=== PATIENT | male | born 1930 | race Caucasian/White ===

== ENCOUNTER 2018-08-26 20:40 | Inpatient (IN) | payer MEDICARE, BC ==
[2018-08-26] MEDS ORDERED: Acetaminophen 500 MG Tab PO ONE (20:43)
--- NOTE | 2018-08-26 21:02 | EDM.PDOC ---
ED HPI GENERAL MEDICAL PROBLEM - General Chief Complaint: General Stated Complaint: fever, wekaness, lethargic Time Seen by Provider: 08/26/18 20:40 Source of Information: Reports: Patient, EMS, Family History Limitations: Reports: No Limitations - History of Present Illness INITIAL COMMENTS - FREE TEXT/NARRATIVE: Antonio is an 87 yo male who presents to the ED via [facility]. is present and states this afternoon he hadn't been feeling well. States around 3: 30 he laid down to take a nap and when she went to get him up around 1700 for supper his legs were very weak. She admits she did give him some banana pudding which he was able to keep down. She states he was acting like he was going to pass out. Upon EMS arrival, EMS state he was not showing any sign of stroke. Was very weak and felt warm. Initial temperature was 102. They state he was answering all questions appropriately. No unilateral weakness. Duration: Getting Worse - Related Data Allergies Allergy/AdvReac Type Severity Reaction Status Date / Time No Known Allergies Allergy Verified 08/26/18 21:04 Home Meds: Home Meds Aspirin 81 mg PO BEDTIME 05/22/15 [History] Calcium Carb/D3/Magnesium/Zinc [Albert Mag Zinc + D3] 1 each PO BEDTIME 05/22/15 [ History] Fish Oil/[place]-3 Fatty Acids [Fish Oil 1,000 MG] 1 gm PO DAILY 05/22/15 [History ] Multivitamin [Multivitamins] 1 each PO DAILY 05/22/15 [History] Potassium Chloride [Klor-Con 10] 10 meq PO BEDTIME 05/22/15 [History] atorvaSTATin [Lipitor] 10 mg PO DAILY 06/08/15 [History] Glucosamine [Glucosamine Sulfate] 500 mg PO BID 04/21/16 [History] Nitroglycerin 0.4 mg SL ASDIRECTED PRN 04/21/16 [History] Carvedilol [Coreg] 6.25 mg PO BID 05/01/16 [History] Cholecalciferol (Vitamin D3) [Vitamin D] 1,000 unit PO BID 05/01/16 [History] Furosemide [Lasix] 20 mg PO DAILY 05/01/16 [History] Magnesium 250 mg PO DAILY 05/01/16 [History] Warfarin [Coumadin] 2.5 mg PO DAILY 05/01/16 [History] Digoxin 0.125 mg PO DAILY 03/02/17 [History] Irbesartan [Avapro] 150 mg PO DAILY 08/26/18 [History] Spironolactone [Aldactone] 25 mg PO DAILY 08/26/18 [History] Past Medical History HEENT History: Reports: Cataract, Hard of Hearing Cardiovascular History: Reports: Afib, High Cholesterol, Hypertension, PR Other Cardiovascular History: PR on 2015. 3 stents Respiratory History: Reports: Sleep Apnea Genitourinary History: Reports: BPH Neurological History: Reports: TIA - Past Surgical History HEENT Surgical History: Reports: Cataract Surgery, Tonsillectomy Cardiovascular Surgical History: Reports: Other (See Below) Social & Family History - Family History Family Medical History: Noncontributory - Caffeine Use Caffeine Use: Reports: Coffee ED ROS GENERAL - Review of Systems Review Of Systems: See Below Constitutional: Reports: Fever, Weakness, Diaphoresis HEENT: Reports: No Symptoms Respiratory: Reports: Cough. Denies: Shortness of Breath Cardiovascular: Reports: No Symptoms GI/Abdominal: Reports: No Symptoms : Reports: No Symptoms Skin: Reports: No Symptoms Neurological: Reports: Confusion, Difficulty Walking, Weakness. Denies: Dizziness, Numbness, Tingling, Trouble Speaking, Gait Disturbance Psychiatric: Reports: No Symptoms ED EXAM, GENERAL - Physical Exam Exam: See Below Exam Limited By: No Limitations General Appearance: Alert, No Apparent Distress, Other (Patient is on hospital bed in no acute distress, answering all questions appropriately. ) Eye Exam: Bilateral Eye: EOMI, Normal Inspection, PERRL Ears: Normal External Exam, Normal Canal, Normal TMs, Hearing Loss Nose: Normal Inspection, Normal Mucosa, No Blood Throat/Mouth: Normal Inspection, Normal Lips, Normal Teeth, Normal Gums, Normal Oropharynx, Normal Voice, No Airway Compromise Head: Atraumatic, Normocephalic Neck: Normal Inspection, Supple Respiratory/Chest: No Respiratory Distress, Decreased Breath Sounds, Crackles ( right lower lobe). No: Wheezing, Stridor, Accessory Muscle Use Cardiovascular: Normal Peripheral Pulses, Regular Rate, Rhythm, No Edema GI/Abdominal: Normal Bowel Sounds, Soft, Non-Tender Extremities: Normal Inspection, Normal Range of Motion, No Pedal Edema Neurological: Alert, Oriented, Normal Cognition, No Motor/Sensory Deficits Psychiatric: Normal Affect, Normal Mood Skin Exam: Dry, Intact, Normal Color, No Rash, Increased Warmth Course - Vital Signs Last Recorded V/S: Last Vital Signs Temp 101.7 F H 08/26/18 20:40 Pulse 77 08/26/18 20:40 Resp 18 08/26/18 20:40 BP 114/57 L 08/26/18 20:40 Pulse Ox 95 08/26/18 20:40 - Orders/Labs/Meds Orders: Active Orders 24 hr Category Date Time Status Chest 2V [CR] Stat Exams 08/26/18 20:31 Taken Head wo Cont [CT] Stat Exams 08/26/18 21:02 Taken CULTURE BLOOD [BC] Stat Lab 08/26/18 21:00 Received CULTURE BLOOD [BC] Stat Lab 08/26/18 21:07 Received Blood Culture x2 Reflex Set [OM.PC] Stat Oth 08/26/18 20:31 Ordered Labs: Laboratory Tests 08/26/18 08/26/18 08/26/18 Range/Units 21:07 21:07 21:07 WBC 13.9 H (5.0-10.0) 10^3/uL RBC 4.48 L (4.50-6.00) 10^6/uL Hgb 12.7 L (14.0-18.0) g/dL Hct 38.3 L (40.0-54.0) % MCV 85.5 (82.0-94.0) fL MCH 28.3 (27.0-32.0) pg MCHC 33.2 (33.0-38.0) g/dL RDW Coeff of Emmanuelle 16.5 H (11.0-15.0) % Plt Count 144 L (150-400) 10^3/uL Neut % (Auto) 81.4 (35-85) % Lymph % (Auto) 5.4 L (10-55) % [place] % (Auto) 12.8 (0-16) % Eos % (Auto) 0.3 (0-5) % Baso % (Auto) 0.1 (0-3) % Neut # (Auto) 11.27 H (1.80-7.00) 10^3/uL Lymph # (Auto) 0.75 L (1.00-4.80) 10^3/uL [place] # (Auto) 1.78 H (0.00-0.80) 10^3/uL Eos # (Auto) 0.04 (0.00-0.45) 10^3/uL Baso # (Auto) 0.02 10^3/uL PT (9.7-12.3) SEC INR (0.92-1.18) Sodium 139 (136-145) mEq/L Potassium 4.6 (3.5-5.0) mEq/L Chloride 104 (98-106) mEq/L Carbon Dioxide 24 (21-32) mmol/L BUN 31 H D (7-18) mg/dL Creatinine 1.2 (0.7-1.3) mg/dL Est Cr Clr Drug Dosing 49.94 mL/min Estimated GFR (MDRD) 57 L (>=60) mL/min Glucose 139 H D (75-99) mg/dL Calcium 9.2 (8.4-10.1) mg/dL Total Bilirubin 0.6 (0.0-1.0) mg/dL AST 21 (15-37) U/L ALT 18 (12-78) U/L Alkaline Phosphatase 186 H (46-116) U/L Creatine Kinase 36 (35-232) U/L Troponin I < 0.017 (0.00-0.06) ng/mL C-Reactive Protein 1.9 H (0.2-0.8) mg/dL Total Protein 6.9 (6.4-8.2) g/dL Albumin 3.0 L (3.4-5.0) g/dL Urine Color Yellow (YELLOW) Urine Appearance Clear (CLEAR) Urine pH 6.5 (4.5-8.0) Ur Specific [place] 1.015 (1.003-1.020) Urine Protein Trace H (NEGATIVE) mg/dL Urine Glucose (UA) Negative (NEGATIVE) mg/dL Urine Ketones Trace H (NEGATIVE) mg/dL Urine Occult Blood Negative (NEGATIVE) Urine Nitrite Negative (NEGATIVE) Urine Bilirubin Negative (NEGATIVE) Urine Urobilinogen 1.0 (0.2-1.0) EU/dL Ur Leukocyte Esterase Negative (NEGATIVE) Urine RBC Not seen (0-5) /HPF Urine WBC Not seen (0-5) /HPF Ur Squamous Epith Cells Occasional H (NOT SEEN) /HPF Urine Bacteria Occasional H (NOT SEEN) /HPF 08/26/18 Range/Units 21:07 WBC (5.0-10.0) 10^3/uL RBC (4.50-6.00) 10^6/uL Hgb (14.0-18.0) g/dL Hct (40.0-54.0) % MCV (82.0-94.0) fL MCH (27.0-32.0) pg MCHC (33.0-38.0) g/dL RDW Coeff of Emmanuelle (11.0-15.0) % Plt Count (150-400) 10^3/uL Neut % (Auto) (35-85) % Lymph % (Auto) (10-55) % [place] % (Auto) (0-16) % Eos % (Auto) (0-5) % Baso % (Auto) (0-3) % Neut # (Auto) (1.80-7.00) 10^3/uL Lymph # (Auto) (1.00-4.80) 10^3/uL [place] # (Auto) (0.00-0.80) 10^3/uL Eos # (Auto) (0.00-0.45) 10^3/uL Baso # (Auto) 10^3/uL PT 16.3 H (9.7-12.3) SEC INR 1.63 H (0.92-1.18) Sodium (136-145) mEq/L Potassium (3.5-5.0) mEq/L Chloride (98-106) mEq/L Carbon Dioxide (21-32) mmol/L BUN (7-18) mg/dL Creatinine (0.7-1.3) mg/dL Est Cr Clr Drug Dosing mL/min Estimated GFR (MDRD) (>=60) mL/min Glucose (75-99) mg/dL Calcium (8.4-10.1) mg/dL Total Bilirubin (0.0-1.0) mg/dL AST (15-37) U/L ALT (12-78) U/L Alkaline Phosphatase (46-116) U/L Creatine Kinase (35-232) U/L Troponin I (0.00-0.06) ng/mL C-Reactive Protein (0.2-0.8) mg/dL Total Protein (6.4-8.2) g/dL Albumin (3.4-5.0) g/dL Urine Color (YELLOW) Urine Appearance (CLEAR) Urine pH (4.5-8.0) Ur Specific [place] (1.003-1.020) Urine Protein (NEGATIVE) mg/dL Urine Glucose (UA) (NEGATIVE) mg/dL Urine Ketones (NEGATIVE) mg/dL Urine Occult Blood (NEGATIVE) Urine Nitrite (NEGATIVE) Urine Bilirubin (NEGATIVE) Urine Urobilinogen (0.2-1.0) EU/dL Ur Leukocyte Esterase (NEGATIVE) Urine RBC (0-5) /HPF Urine WBC (0-5) /HPF Ur Squamous Epith Cells (NOT SEEN) /HPF Urine Bacteria (NOT SEEN) /HPF Meds: Medications Discontinued Medications Generic Name Dose Route Start Last Admin Trade Name Freq PRN Reason Stop Dose Admin Acetaminophen 1,000 mg 08/26/18 20:43 08/26/18 20:47 Tylenol Extra Strength PO 08/26/18 20:44 1,000 mg ONETIME ONE Administration Departure - Departure Time of Disposition: 22:13 Disposition: Admitted As Inpatient 67 Clinical Impression: Pneumonia Qualifiers: Pneumonia type: due to unspecified organism Laterality: right Lung location: lower lobe of lung Qualified Code(s): J18.1 - Lobar pneumonia, unspecified organism - Discharge Information Forms: ED Department Discharge - Problem List & Annotations (1) Pneumonia SNOMED Code(s): 862553125 Code(s): J18.9 - PNEUMONIA, UNSPECIFIED ORGANISM Status: Acute Current Visit: Yes Qualifiers: Pneumonia type: due to unspecified organism Laterality: right Lung location: lower lobe of lung Qualified Code(s): J18.1 - Lobar pneumonia, unspecified organism - My Orders Last 24 Hours: My Active Orders 08/26/18 20:31 Chest 2V [CR] Stat Blood Culture x2 Reflex Set [OM.PC] Stat 08/26/18 21:00 CULTURE BLOOD [BC] Stat 08/26/18 21:02 Head wo Cont [CT] Stat 08/26/18 21:07 CULTURE BLOOD [BC] Stat - Assessment/Plan Admission H&P: Please use this note as an admission H&P Last 24 Hours: My Active Orders 08/26/18 20:31 Chest 2V [CR] Stat Blood Culture x2 Reflex Set [OM.PC] Stat 08/26/18 21:00 CULTURE BLOOD [BC] Stat 08/26/18 21:02 Head wo Cont [CT] Stat 08/26/18 21:07 CULTURE BLOOD [BC] Stat Plan: chest x-ray showed right lower lobe infiltrate. CT head negative for any acute changes. WBC mildly elevated with slightly elevated CRP. Will start IV Rocephin and Azithromycin. Blood cultures are pending. Dr. Watson and Sherrill Alarcon both contacted on admission. Dr. Watson agreed with admission.
[2018-08-26 21:24] LABS: CHLORIDE,CL 104 mEq/L (98-106); SODIUM,NA 139 mEq/L (136-145)
[2018-08-26] MEDS ORDERED: Sodium Chloride 0.9% 10 ML Syringe FLUSH PRN (22:55)
[2018-08-26] MEDS ORDERED: Ibuprofen 200 MG Tab PO PRN (22:55)
[2018-08-26] MEDS ORDERED: Docusate Sodium 100 MG Cap PO PRN (22:55)
[2018-08-26] MEDS ORDERED: Acetaminophen 325 MG Tab PO PRN (22:55)
[2018-08-26] MEDS ORDERED: Nitroglycerin 0.4 MG Tab.SL SL PRN (22:55)
[2018-08-26] MEDS ORDERED: cefTRIAXone 1 GM Vial IVPUSH SCH (23:00)
[2018-08-26] MEDS ORDERED: Sodium Chloride 0.9% 250 ML IV SCH (23:00)
[2018-08-27] MEDS ORDERED: Azithromycin 500 MG in Sodium Chloride 0.9% 250 ML IV SCH ×2
[2018-08-27 07:13] LABS: CHLORIDE,CL 108 mEq/L (98-106); SODIUM,NA 143 mEq/L (136-145)
[2018-08-27] MEDS: Carvedilol 6.25 MG Tab PO SCH ×2 (07:48→19:58)
[2018-08-27] MEDS: Losartan 25 MG Tab PO SCH (07:49)
[2018-08-27] MEDS: atorvaSTATin 20 MG Tab PO SCH (07:50)
[2018-08-27] MEDS: Spironolactone 25 MG Tab PO SCH (07:50)
[2018-08-27] MEDS: Furosemide 20 MG Tab PO SCH (07:50)
--- NOTE | 2018-08-27 08:55 | PCM.PN ---
- General Info Date of Service: 08/27/18 Admission Dx/Problem (Free Text): RLL Pneumonia Functional Status: Reports: Pain Controlled, Tolerating Diet, Ambulating - Review of Systems General: Reports: Fever, Weakness, Fatigue, Malaise HEENT: Reports: Sinus Congestion, Rhinitis. Denies: Ear Pain Pulmonary: Denies: Shortness of Breath, Cough Cardiovascular: Denies: Chest Pain, Edema, Lightheadedness Gastrointestinal: Denies: Abdominal Pain, Nausea, Vomiting Genitourinary: Reports: No Symptoms Musculoskeletal: Reports: No Symptoms Skin: Reports: No Symptoms Neurological: Reports: Confusion (reported confusion by nurses last night, more clear this am) - Patient Data Vitals - Most Recent: Last Vital Signs Temp 97.1 F 08/27/18 08:00 Pulse 72 08/27/18 08:00 Resp 18 08/27/18 08:00 BP 113/62 08/27/18 08:00 Pulse Ox 100 08/27/18 08:00 Weight - Most Recent: 186 lb 4.8 oz I&O - Last 24 Hours: Intake & Output 08/26/18 08/27/18 08/27/18 22:59 06:59 14:59 Output Total 800 275 Balance -800 -275 Lab Results Last 24 Hours: Laboratory Results - last 24 hr 08/26/18 08/26/18 08/26/18 Range/Units 21:07 21:07 21:07 WBC 13.9 H (5.0-10.0) 10^3/uL RBC 4.48 L (4.50-6.00) 10^6/uL Hgb 12.7 L (14.0-18.0) g/dL Hct 38.3 L (40.0-54.0) % MCV 85.5 (82.0-94.0) fL MCH 28.3 (27.0-32.0) pg MCHC 33.2 (33.0-38.0) g/dL RDW Coeff of Emmanuelle 16.5 H (11.0-15.0) % Plt Count 144 L (150-400) 10^3/uL Neut % (Auto) 81.4 (35-85) % Lymph % (Auto) 5.4 L (10-55) % [place] % (Auto) 12.8 (0-16) % Eos % (Auto) 0.3 (0-5) % Baso % (Auto) 0.1 (0-3) % Neut # (Auto) 11.27 H (1.80-7.00) 10^3/uL Lymph # (Auto) 0.75 L (1.00-4.80) 10^3/uL [place] # (Auto) 1.78 H (0.00-0.80) 10^3/uL Eos # (Auto) 0.04 (0.00-0.45) 10^3/uL Baso # (Auto) 0.02 10^3/uL PT (9.7-12.3) SEC INR (0.92-1.18) Sodium 139 (136-145) mEq/L Potassium 4.6 (3.5-5.0) mEq/L Chloride 104 (98-106) mEq/L Carbon Dioxide 24 (21-32) mmol/L BUN 31 H D (7-18) mg/dL Creatinine 1.2 (0.7-1.3) mg/dL Est Cr Clr Drug Dosing 49.94 mL/min Estimated GFR (MDRD) 57 L (>=60) mL/min Glucose 139 H D (75-99) mg/dL Calcium 9.2 (8.4-10.1) mg/dL Total Bilirubin 0.6 (0.0-1.0) mg/dL AST 21 (15-37) U/L ALT 18 (12-78) U/L Alkaline Phosphatase 186 H (46-116) U/L Creatine Kinase 36 (35-232) U/L Troponin I < 0.017 (0.00-0.06) ng/mL C-Reactive Protein 1.9 H (0.2-0.8) mg/dL Total Protein 6.9 (6.4-8.2) g/dL Albumin 3.0 L (3.4-5.0) g/dL Urine Color Yellow (YELLOW) Urine Appearance Clear (CLEAR) Urine pH 6.5 (4.5-8.0) Ur Specific [place] 1.015 (1.003-1.020) Urine Protein Trace H (NEGATIVE) mg/dL Urine Glucose (UA) Negative (NEGATIVE) mg/dL Urine Ketones Trace H (NEGATIVE) mg/dL Urine Occult Blood Negative (NEGATIVE) Urine Nitrite Negative (NEGATIVE) Urine Bilirubin Negative (NEGATIVE) Urine Urobilinogen 1.0 (0.2-1.0) EU/dL Ur Leukocyte Esterase Negative (NEGATIVE) Urine RBC Not seen (0-5) /HPF Urine WBC Not seen (0-5) /HPF Ur Squamous Epith Cells Occasional H (NOT SEEN) /HPF Urine Bacteria Occasional H (NOT SEEN) /HPF 08/26/18 08/27/18 08/27/18 Range/Units 21:07 05:11 06:50 WBC 11.3 H (5.0-10.0) 10^3/uL RBC 4.15 L (4.50-6.00) 10^6/uL Hgb 11.7 L (14.0-18.0) g/dL Hct 35.7 L (40.0-54.0) % MCV 86.0 (82.0-94.0) fL MCH 28.2 (27.0-32.0) pg MCHC 32.8 L (33.0-38.0) g/dL RDW Coeff of Emmanuelle 16.4 H (11.0-15.0) % Plt Count 128 L (150-400) 10^3/uL Neut % (Auto) 73.6 (35-85) % Lymph % (Auto) 13.1 (10-55) % [place] % (Auto) 12.4 (0-16) % Eos % (Auto) 0.8 (0-5) % Baso % (Auto) 0.1 (0-3) % Neut # (Auto) 8.33 H (1.80-7.00) 10^3/uL Lymph # (Auto) 1.48 (1.00-4.80) 10^3/uL [place] # (Auto) 1.40 H (0.00-0.80) 10^3/uL Eos # (Auto) 0.09 (0.00-0.45) 10^3/uL Baso # (Auto) 0.01 10^3/uL PT 16.3 H (9.7-12.3) SEC INR 1.63 H (0.92-1.18) Sodium 143 (136-145) mEq/L Potassium 4.1 (3.5-5.0) mEq/L Chloride 108 H (98-106) mEq/L Carbon Dioxide 26 (21-32) mmol/L BUN 27 H (7-18) mg/dL Creatinine 1.1 (0.7-1.3) mg/dL Est Cr Clr Drug Dosing 54.48 mL/min Estimated GFR (MDRD) > 60 (>=60) mL/min Glucose 87 D (75-99) mg/dL Calcium 8.8 (8.4-10.1) mg/dL Total Bilirubin (0.0-1.0) mg/dL AST (15-37) U/L ALT (12-78) U/L Alkaline Phosphatase (46-116) U/L Creatine Kinase (35-232) U/L Troponin I (0.00-0.06) ng/mL C-Reactive Protein 4.1 H (0.2-0.8) mg/dL Total Protein (6.4-8.2) g/dL Albumin (3.4-5.0) g/dL Urine Color (YELLOW) Urine Appearance (CLEAR) Urine pH (4.5-8.0) Ur Specific [place] (1.003-1.020) Urine Protein (NEGATIVE) mg/dL Urine Glucose (UA) (NEGATIVE) mg/dL Urine Ketones (NEGATIVE) mg/dL Urine Occult Blood (NEGATIVE) Urine Nitrite (NEGATIVE) Urine Bilirubin (NEGATIVE) Urine Urobilinogen (0.2-1.0) EU/dL Ur Leukocyte Esterase (NEGATIVE) Urine RBC (0-5) /HPF Urine WBC (0-5) /HPF Ur Squamous Epith Cells (NOT SEEN) /HPF Urine Bacteria (NOT SEEN) /HPF Med Orders - Current: Current Medications Acetaminophen (Tylenol) 650 mg PO Q4H PRN PRN Reason: Pain (Mild 1-3)/fever Aspirin (Aspirin) 81 mg PO BEDTIME COUNTS INCLUDE 234 BEDS AT THE [facility] Atorvastatin Calcium (Lipitor) 10 mg PO DAILY COUNTS INCLUDE 234 BEDS AT THE [facility] Last Admin: 08/27/18 07:50 Dose: 10 mg Carvedilol (Coreg) 6.25 mg PO BID COUNTS INCLUDE 234 BEDS AT THE [facility] Last Admin: 08/27/18 07:48 Dose: 6.25 mg Ceftriaxone Sodium (Rocephin) 1 gm IVPUSH Q24H COUNTS INCLUDE 234 BEDS AT THE [facility] Last Admin: 08/26/18 23:49 Dose: 1 gm Digoxin (Lanoxin) 125 mcg PO DAILY@1200 COUNTS INCLUDE 234 BEDS AT THE [facility] Docusate Sodium (Colace) 100 mg PO BID PRN PRN Reason: Constipation Furosemide (Lasix) 20 mg PO DAILY COUNTS INCLUDE 234 BEDS AT THE [facility] Last Admin: 08/27/18 07:50 Dose: 20 mg Azithromycin 500 mg/ Sodium (Chloride) 250 mls @ 250 mls/hr IV Q24H COUNTS INCLUDE 234 BEDS AT THE [facility] Last Admin: 08/26/18 23:49 Dose: 250 mls/hr Sodium Chloride (Normal Saline) 250 mls @ 250 mls/hr IV ASDIRECTED COUNTS INCLUDE 234 BEDS AT THE [facility] Last Admin: 08/26/18 23:19 Dose: 250 mls/hr Ibuprofen (Motrin) 400 mg PO Q6H PRN PRN Reason: Pain (mild 1-3) Losartan Potassium (Cozaar) 50 mg PO DAILY COUNTS INCLUDE 234 BEDS AT THE [facility] Last Admin: 08/27/18 07:49 Dose: 50 mg Magnesium Oxide (Magnesium Oxide) 250 mg PO DAILY COUNTS INCLUDE 234 BEDS AT THE [facility] Last Admin: 08/27/18 07:49 Dose: 250 mg Nitroglycerin (Nitrostat) 0.4 mg SL ASDIRECTED PRN PRN Reason: Chest Pain Potassium Chloride (Klor-Con 10) 10 meq PO BEDTIME COUNTS INCLUDE 234 BEDS AT THE [facility] Sodium Chloride (Saline Flush) 10 ml FLUSH ASDIRECTED PRN PRN Reason: Keep Vein Open Spironolactone (Aldactone) 25 mg PO DAILY COUNTS INCLUDE 234 BEDS AT THE [facility] Last Admin: 08/27/18 07:50 Dose: 25 mg Warfarin Sodium (Coumadin) 2.5 mg PO DAILY@1200 COUNTS INCLUDE 234 BEDS AT THE [facility] Discontinued Medications Acetaminophen (Tylenol Extra Strength) 1,000 mg PO ONETIME ONE Stop: 08/26/18 20:44 Last Admin: 08/26/18 20:47 Dose: 1,000 mg - Exam General: Alert, Oriented HEENT: Mucous Membr. Moist/[place] Neck: Supple Lungs: Decreased Breath Sounds Cardiovascular: Regular Rate, Regular Rhythm GI/Abdominal Exam: Normal Bowel Sounds, Soft, Non-Tender Extremities: Normal Inspection, No Pedal Edema Skin: Warm, Dry Neurological: No New Focal Deficit - Problem List & Annotations (1) Pneumonia SNOMED Code(s): 587582090 Code(s): J18.9 - PNEUMONIA, UNSPECIFIED ORGANISM Status: Acute Priority: High Current Visit: Yes Qualifiers: Pneumonia type: due to other aerobic Gram-negative bacteria Laterality: right Lung location: lower lobe of lung Qualified Code(s): J15.6 - Pneumonia due to other Gram-negative bacteria - Problem List Review Problem List Initiated/Reviewed/Updated: Yes - Assessment Assessment:: RLL Pneumonia, suspect gram negative bacteria - Plan Plan:: Patient resting this am, stable. Oriented x3 this am. More clear with conversation than when presented to ER per nurse. Afebrile this am. Blood pressure 113/62. WBC this am 11.3, improved from 13.9. CRP increased to 4.1. no sputum obtained as of yet. States minimal cough at this point. Will continue with IV Rocephin and Zithromax. PT to consult for strengthening. Inappropriate for discharge.
[2018-08-27] MEDS: Digoxin 125 MCG Tab PO SCH (11:46)
[2018-08-27] MEDS: Warfarin 2.5 MG Tab PO SCH (11:46)
[2018-08-27] MEDS: Lactated Ringers 1,000 ML IV SCH (12:01)
[2018-08-27] MEDS: Potassium Chloride 10 MEQ Tab.ER PO SCH (19:58)
[2018-08-27] MEDS: Aspirin 81 MG Tab.Chew PO SCH (19:58)
[2018-08-27] MEDS: cefTRIAXone 1 GM Vial IVPUSH SCH (19:58)
[2018-08-27] MEDS: Azithromycin 500 MG in Sodium Chloride 0.9% 250 ML IV SCH (20:02)
[2018-08-28] MEDS: Lactated Ringers 1,000 ML IV SCH (02:12)
[2018-08-28 07:15] LABS: CHLORIDE,CL 110 mEq/L (98-106); SODIUM,NA 144 mEq/L (136-145)
[2018-08-28] MEDS: atorvaSTATin 20 MG Tab PO SCH (07:42)
[2018-08-28] MEDS: Losartan 25 MG Tab PO SCH (07:43)
[2018-08-28] MEDS: Carvedilol 6.25 MG Tab PO SCH ×2 (07:43→19:34)
[2018-08-28] MEDS: Furosemide 20 MG Tab PO SCH (07:43)
[2018-08-28] MEDS: Spironolactone 25 MG Tab PO SCH (07:44)
--- NOTE | 2018-08-28 10:57 | PCM.PN ---
- General Info Date of Service: 08/28/18 Admission Dx/Problem (Free Text): RLL Pneumonia Subjective Update: Antonio is an 87 year old male who was admitted to the hospital from the ED on for RLL pneumonia. Was reportedly confused and weak with a fever at home prior to ED presentation. Patient reports he is feeling much better today. Reports he does continue to cough some. Does not feel SOB at rest. Did have some low blood pressures yesterday. IV fluids were started and patient has been normotensive. Has had low grade fever since admit, but nothing greater than 99.6. He has been tolerating a low sodium diet. He offers no c/o pain this morning and overall has no complaints. He is alert and oriented. Family reports he is much less confused than he was on admit. Functional Status: Reports: Pain Controlled, Tolerating Diet, Ambulating, Urinating, New Symptoms - Review of Systems General: Reports: Weakness, Fatigue. Denies: Fever, Chills HEENT: Reports: No Symptoms Pulmonary: Reports: Cough. Denies: Shortness of Breath, Pleuritic Chest Pain, Sputum, Hemoptysis, Wheezing Cardiovascular: Reports: Dyspnea on Exertion. Denies: Chest Pain, Palpitations , Orthopnea, Edema, Lightheadedness Gastrointestinal: Reports: No Symptoms. Denies: Abdominal Pain, Decreased Appetite, Diarrhea, Nausea, Vomiting Genitourinary: Reports: No Symptoms Musculoskeletal: Reports: No Symptoms Skin: Reports: No Symptoms Neurological: Reports: No Symptoms. Denies: Confusion, Dizziness, Weakness Psychiatric: Reports: No Symptoms - Patient Data Vitals - Most Recent: Last Vital Signs Temp 98.9 F 08/28/18 07:54 Pulse 68 08/28/18 07:54 Resp 18 08/28/18 07:54 BP 116/66 08/28/18 07:54 Pulse Ox 99 08/28/18 07:54 Weight - Most Recent: 186 lb 4.8 oz I&O - Last 24 Hours: Intake & Output 08/27/18 08/28/18 08/28/18 22:59 06:59 14:59 Intake Total 440 1000 400 Output Total 300 250 300 Balance 140 750 100 Lab Results Last 24 Hours: Laboratory Results - last 24 hr 08/28/18 08/28/18 08/28/18 Range/Units 06:50 06:50 06:50 WBC 8.6 (5.0-10.0) 10^3/uL RBC 4.20 L (4.50-6.00) 10^6/uL Hgb 11.7 L (14.0-18.0) g/dL Hct 36.2 L (40.0-54.0) % MCV 86.2 (82.0-94.0) fL MCH 27.9 (27.0-32.0) pg MCHC 32.3 L (33.0-38.0) g/dL RDW Coeff of Emmanuelle 16.5 H (11.0-15.0) % Plt Count 138 L (150-400) 10^3/uL Neut % (Auto) 63.5 (35-85) % Lymph % (Auto) 18.0 (10-55) % Gulf % (Auto) 14.7 (0-16) % Eos % (Auto) 3.6 (0-5) % Baso % (Auto) 0.2 (0-3) % Neut # (Auto) 5.46 (1.80-7.00) 10^3/uL Lymph # (Auto) 1.55 (1.00-4.80) 10^3/uL Gulf # (Auto) 1.26 H (0.00-0.80) 10^3/uL Eos # (Auto) 0.31 (0.00-0.45) 10^3/uL Baso # (Auto) 0.02 10^3/uL PT 17.9 H (9.7-12.3) SEC INR 1.80 H (0.92-1.18) Sodium 144 (136-145) mEq/L Potassium 4.7 (3.5-5.0) mEq/L Chloride 110 H (98-106) mEq/L Carbon Dioxide 27 (21-32) mmol/L BUN 26 H (7-18) mg/dL Creatinine 1.1 (0.7-1.3) mg/dL Est Cr Clr Drug Dosing 54.48 mL/min Estimated GFR (MDRD) > 60 (>=60) mL/min Glucose 82 (75-99) mg/dL Calcium 8.7 (8.4-10.1) mg/dL C-Reactive Protein 5.2 H (0.2-0.8) mg/dL George Results Last 24 Hours: Microbiology 08/26/18 21:00 Aerobic Blood Culture - Preliminary Blood - Venous NO GROWTH AFTER 1 DAY Anaerobic Blood Culture - Preliminary NO GROWTH AFTER 1 DAY 08/26/18 21:07 Aerobic Blood Culture - Preliminary Blood - Venous - Lab Draw NO GROWTH AFTER 1 DAY Anaerobic Blood Culture - Preliminary NO GROWTH AFTER 1 DAY Med Orders - Current: Current Medications Acetaminophen (Tylenol) 650 mg PO Q4H PRN PRN Reason: Pain (Mild 1-3)/fever Aspirin (Aspirin) 81 mg PO BEDTIME [facility] Last Admin: 08/27/18 19:58 Dose: 81 mg Atorvastatin Calcium (Lipitor) 10 mg PO DAILY [facility] Last Admin: 08/28/18 07:42 Dose: 10 mg Carvedilol (Coreg) 6.25 mg PO BID [facility] Last Admin: 08/28/18 07:43 Dose: 6.25 mg Ceftriaxone Sodium (Rocephin) 1 gm IVPUSH Q24H [facility] Last Admin: 08/27/18 19:58 Dose: 1 gm Digoxin (Lanoxin) 125 mcg PO DAILY@1200 [facility] Last Admin: 08/27/18 11:46 Dose: 125 mcg Docusate Sodium (Colace) 100 mg PO BID PRN PRN Reason: Constipation Furosemide (Lasix) 20 mg PO DAILY [facility] Last Admin: 08/28/18 07:43 Dose: 20 mg Sodium Chloride (Normal Saline) 250 mls @ 250 mls/hr IV ASDIRECTED [facility] Last Admin: 08/26/18 23:19 Dose: 250 mls/hr Azithromycin 500 mg/ Sodium (Chloride) 250 mls @ 250 mls/hr IV Q24H [facility] Last Admin: 08/27/18 20:02 Dose: 250 mls/hr Ibuprofen (Motrin) 400 mg PO Q6H PRN PRN Reason: Pain (mild 1-3) Losartan Potassium (Cozaar) 50 mg PO DAILY [facility] Last Admin: 08/28/18 07:43 Dose: 50 mg Magnesium Oxide (Magnesium Oxide) 250 mg PO DAILY [facility] Last Admin: 08/28/18 07:42 Dose: 250 mg Nitroglycerin (Nitrostat) 0.4 mg SL ASDIRECTED PRN PRN Reason: Chest Pain Potassium Chloride (Klor-Con 10) 10 meq PO BEDTIME [facility] Last Admin: 05/01/19 19:58 Dose: 10 meq Sodium Chloride (Saline Flush) 10 ml FLUSH ASDIRECTED PRN PRN Reason: Keep Vein Open Spironolactone (Aldactone) 25 mg PO DAILY [facility] Last Admin: 08/28/18 07:44 Dose: 25 mg Warfarin Sodium (Coumadin) 2.5 mg PO DAILY@1200 [facility] Last Admin: 08/27/18 11:46 Dose: 2.5 mg Discontinued Medications Acetaminophen (Tylenol Extra Strength) 1,000 mg PO ONETIME ONE Stop: 08/26/18 20:44 Last Admin: 08/26/18 20:47 Dose: 1,000 mg Ceftriaxone Sodium (Rocephin) 1 gm IVPUSH Q24H [facility] Last Admin: 08/26/18 23:49 Dose: 1 gm Azithromycin 500 mg/ Sodium (Chloride) 250 mls @ 250 mls/hr IV Q24H [facility] Last Admin: 08/26/18 23:49 Dose: 250 mls/hr Lactated Ringer's (Ringers, Lactated) 1,000 mls @ 75 mls/hr IV ASDIRECTED [facility] Last Admin: 08/28/18 02:12 Dose: 75 mls/hr - Exam Quality Assessment: DVT Prophylaxis. No: Supplemental Oxygen General: Alert, Oriented, No Acute Distress Neck: Supple Lungs: Clear to Auscultation, Normal Respiratory Effort, Decreased Breath Sounds (RLL). No: Crackles, Rales, Rhonchi, Wheezing Cardiovascular: Regular Rate, Regular Rhythm GI/Abdominal Exam: Normal Bowel Sounds, Soft, Non-Tender, No Organomegaly, No Distention, No Abnormal Bruit, No Mass, Pelvis Stable Extremities: Normal Inspection, Normal Range of Motion, Non-Tender, No Pedal Edema, Normal Capillary Refill Neurological: No New Focal Deficit Psy/Mental Status: Alert, Normal Affect, Normal Mood - Problem List & Annotations (1) Pneumonia SNOMED Code(s): 275372086 Code(s): J18.9 - PNEUMONIA, UNSPECIFIED ORGANISM Status: Acute Priority: High Current Visit: Yes Qualifiers: Pneumonia type: due to other aerobic Gram-negative bacteria Laterality: right Lung location: lower lobe of lung Qualified Code(s): J15.6 - Pneumonia due to other Gram-negative bacteria - Problem List Review Problem List Initiated/Reviewed/Updated: Yes - Assessment Assessment:: RLL Pneumonia, suspect gram negative bacteria - Plan Plan:: WBC improved from 13.9 on admit to 8.6 today. CRP increased some from 4.1 to 5.2 today. Patient has been afebrile is maintaining O2 sats on RA. Unable to obtain sputum culture as patient has nonproductive cough. Cough is minimal. Blood cultures remain negative. BP stable. Will discontinue IVF. INR 1.8. Continue current dose Coumadin. Will continue with IV Rocephin and Zithromax. PT for strengthening. Anticipate discharge tomorrow after additional day of IV antibiotics. Discussed this with patient who was agreeable with plan.
[2018-08-28] MEDS: Warfarin 2.5 MG Tab PO SCH (11:49)
[2018-08-28] MEDS: Digoxin 125 MCG Tab PO SCH (11:49)
[2018-08-28] MEDS: Aspirin 81 MG Tab.Chew PO SCH (19:33)
[2018-08-28] MEDS: Potassium Chloride 10 MEQ Tab.ER PO SCH (19:34)
[2018-08-28] MEDS: cefTRIAXone 1 GM Vial IVPUSH SCH (19:34)
[2018-08-28] MEDS: Azithromycin 500 MG in Sodium Chloride 0.9% 250 ML IV SCH (19:34)
[2018-08-29] MEDS: Carvedilol 6.25 MG Tab PO SCH (07:12)
[2018-08-29] MEDS: Spironolactone 25 MG Tab PO SCH (07:12)
[2018-08-29] MEDS: atorvaSTATin 20 MG Tab PO SCH (07:13)
[2018-08-29] MEDS: Losartan 25 MG Tab PO SCH (07:13)
[2018-08-29] MEDS: Furosemide 20 MG Tab PO SCH (07:13)
[2018-08-29] MEDS ORDERED: cefTRIAXone 1 GM Vial IVPUSH ONE (08:06)
[2018-08-29 08:53] LABS: CHLORIDE,CL 109 mEq/L (98-106); SODIUM,NA 145 mEq/L (136-145)
[2018-08-29 11:38] VITALS: BP 94/54
[2018-08-29] MEDS: Warfarin 2.5 MG Tab PO SCH (12:09)
[2018-08-29] MEDS: Digoxin 125 MCG Tab PO SCH (12:10)
--- NOTE | 2018-08-30 05:28 | DISCH ---
HISTORY OF PRESENT ILLNESS: Antonio is an 87-year-old male who was initially admitted on the 08/26/2018 for a right lower lobe pneumonia. He had presented to the emergency room with some confusion, weakness, and unable to ambulate with a fever at home. He has gradually made significant improvement during his hospital stay. He did receive some IV fluids secondary to being hypotensive; however, his blood pressure has normalized as of the last 24 hours. He has not had any further attempts while being in the hospital. This morning, he is feeling much better. He is answering all questions appropriately. He does not really appear to be in any acute distress whatsoever. He states he is ready for discharge at this point in time. LABORATORY WORK: White blood count on admission was 13,900 and currently 8600. INR was 1.63 on admission and now 1.8. CRP is slightly elevated at 5.2. Urinalysis was negative. PHYSICAL EXAMINATION: VITAL SIGNS: This morning does show a blood pressure of 108/63 with a respiratory rate of 20, and O2 is 99% on room air. Temperature of 97.6 with a pulse of 70. GENERAL: Pleasant and cooperative male. Again, he is in no acute distress, not acutely ill. HEENT: Grossly unremarkable. LUNGS: Clear to auscultation. I did not hear any adventitious sounds this morning. There are no crackles, rhonchi, or rales. No wheezing is noted. CARDIOVASCULAR: Regular rate and rhythm. No murmurs are noted. Scant, trace pedal edema bilaterally. ASSESSMENT: Right lower lobe pneumonia, suspect Gram-negative bacteria. PLAN: Blood cultures were normal. No growth after 2 days. We were unable to get a sputum culture secondary to dry cough. Again, we will look at discharge today. We will resume home medications. We will discuss with the decreasing his losartan to 25 mg daily. INR is 1.8. We will continue with the current Coumadin dose. He will receive 1 g of IV Rocephin prior to discharge and then we will plan on sending home on 3 days of Zithromax. We will look at the followup in 2 weeks in the clinic. If he continues to do well this morning, we will again plan for discharge anyway when his is present. I discussed this in detail with the patient and he is agreeable and is ready to go home at this time. MARCEL/MODL /[id number]
== END 2018-08-29 13:50 | disposition home or self-care (01) | DRG 179 ==
LOC: CC.ED 20:40 → CC.MS 22:26 → CC.ED 22:40 → CC.MS 22:40 → UNDOADMIN 22:40
PROVIDERS: ADMIT Physician Assistant Medical; ATTEND Family Medicine
DX: J15.6 Pneumonia due to other Gram-negative bacteria (principal); H91.90 Unspecified hearing loss, unspecified ear; I48.91 Unspecified atrial fibrillation; E78.00 Pure hypercholesterolemia, unspecified; I10 Essential (primary) hypertension; G47.30 Sleep apnea, unspecified; N40.0 Benign prostatic hyperplasia without lower urinary tract symptoms; Z79.82 Long term (current) use of aspirin; Z79.01 Long term (current) use of anticoagulants; Z79.899 Other long term (current) drug therapy; Z98.49 Cataract extraction status, unspecified eye; I25.2 Old myocardial infarction; Z95.5 Presence of coronary angioplasty implant and graft; Z86.73 Personal history of transient ischemic attack (TIA), and cerebral infarction without residual deficits
CPT/HCPCS: 36415; 70450; 71046; 80048; 80053; 81001; 82550; 83880; 84484; 85025; 85610; 86140; 87040; 93005; 99285-25; A9270-GY; J0456; J0696; J7050; J7120

== ENCOUNTER 2019-01-18 20:00 | Inpatient (IN) | payer MEDICARE, BC ==
--- NOTE | 2019-01-18 20:22 | EDM.PDOC ---
ED HPI GENERAL MEDICAL PROBLEM - General Chief Complaint: Trauma Stated Complaint: found on ground, cant stand, on coumadin Time Seen by Provider: 01/18/19 20:06 Source of Information: Reports: Patient, Family, RN History Limitations: Reports: Altered Mental Status (chronic/dementia) - History of Present Illness INITIAL COMMENTS - FREE TEXT/NARRATIVE: This patient is an 88 year old male that presents to the ER via private vehicle. TRAUMA CODE called due to elderly fall on coumadin. CXR performed. Iv placed, property assessment monitor placed, labs ordered. Patient hemodynamically stable. The is with the patient at bedside. The and patient are historians, however more than patient due to patient dementia. The reports the patient was acting fine all day today. She reports until about 5pm. She reports at 5pm he told her that he was feeling tired. She told him to go take a walk. The patient then at 5:15pm left the home [place]. She reports she was at home and he still was not back after 7pm. She reports so about 7:15pm she went to go look for him. She reports she found him about 100 yards from the house. She reports she thinks he was walking back to the house when he felt, but this is uncertain when he fell or if he fell. The reports she found the patient laying flat on his back on the grass path. She reports that when she found him, he complained that he had chest pain and shortness of breath. She reports that she called for help, and it took two people to lift him from the ground. Then she brought him here to the ER. The patient does not recall falling or remember laying on the ground. The reports this is not uncommon for the patient with his history of dementia. The patient currently in the ER has no complaints. He has no pain complaints and no complaints of shortness of breath. The patient is alert. The reports he usually walks around on his own and goes on walks. He is unable to do this in the ER without assistance. The reports patient has not been sick before saying he was tired this evening. She reports only complaint is he has been congested several days. Onset: Today, Unknown/Unsure (last known well time was 5:15pm) Onset Date: 01/18/19 Onset Time: 17:15 Location: Reports: Head, Chest Improves with: Reports: None Worsens with: Reports: None - Related Data Allergies Allergy/AdvReac Type Severity Reaction Status Date / Time No Known Allergies Allergy Verified 01/18/19 20:27 Home Meds: Home Meds Aspirin 81 mg PO BEDTIME 05/22/15 [History] Calcium Carb/D3/Magnesium/Zinc [Albert Mag Zinc + D3] 1 each PO DAILY 05/22/15 [ History] Fish Oil/[place]-3 Fatty Acids [Fish Oil 1,000 MG] 1 gm PO DAILY 05/22/15 [History ] Multivitamin [Multivitamins] 1 each PO DAILY 05/22/15 [History] Potassium Chloride [Klor-Con 10] 10 meq PO MOWEFR 05/22/15 [History] atorvaSTATin [Lipitor] 10 mg PO DAILY 06/08/15 [History] Glucosamine [Glucosamine Sulfate] 500 mg PO DAILY 04/21/16 [History] Nitroglycerin 0.4 mg SL ASDIRECTED PRN 04/21/16 [History] Carvedilol [Coreg] 3.125 mg PO BID 05/01/16 [History] Cholecalciferol (Vitamin D3) [Vitamin D] 1,000 unit PO BID 05/01/16 [History] Furosemide [Lasix] 20 mg PO SUMOWEFR 05/01/16 [History] Magnesium 250 mg PO MOWEFR 05/01/16 [History] Warfarin [Coumadin] 2.5 mg PO SUMOTUTHFRSA 05/01/16 [History] Digoxin 0.125 mg PO SUMOWEFR 03/02/17 [History] Spironolactone [Aldactone] 25 mg PO SUMOWEFR 08/26/18 [History] Irbesartan 150 mg PO DAILY 01/18/19 [History] Tamsulosin HCl [Flomax] 0.4 mg PO DAILY 01/18/19 [History] Past Medical History HEENT History: Reports: Cataract, Hard of Hearing Cardiovascular History: Reports: Afib, High Cholesterol, Hypertension, IA Other Cardiovascular History: IA on 2015. 3 stents Respiratory History: Reports: Sleep Apnea Genitourinary History: Reports: BPH Neurological History: Reports: TIA - Past Surgical History HEENT Surgical History: Reports: Cataract Surgery, Tonsillectomy Cardiovascular Surgical History: Reports: Other (See Below) Social & Family History - Family History Family Medical History: Noncontributory - Caffeine Use Caffeine Use: Reports: Coffee Review of Systems - Review of Systems Review Of Systems: See Below (ROS is limited due to patient hx of dementia and not with patient during fall.) Constitutional: Reports: Weakness (general weakness) Eyes: Reports: No Symptoms Ears: Reports: No Symptoms Nose: Reports: Congestion Mouth/Throat: Reports: No Symptoms Respiratory: Reports: Shortness of Breath (complained to of being short of breath when found on ground. Not currently.) Cardiovascular: Reports: Chest Pain (Complained of chest pain when found by on ground. Not currently.). Denies: Palpitations GI/Abdominal: Denies: Abdominal Pain, Diarrhea, Nausea, Vomiting Genitourinary: Reports: No Symptoms Musculoskeletal: Reports: No Symptoms. Denies: Neck Pain, Shoulder Pain, Arm Pain, Back Pain, Hand Pain, Leg Pain, Foot Pain, Joint Pain, Joint Swelling, Muscle Pain, Muscle Stiffness Skin: Reports: Bruising (old left hand at skin tear. Left frontal scalp ), Wound (old healing skin tear to left hand. ). Denies: Cyanosis, Jaundice, Mottled, Pallor, Diaphoresis Neurological: Reports: Confusion (Chronic, history of dementia. ), Weakness ( generalized), Gait Disturbance (ambualtory with two person assist in the ER upon patient arrival. ). Denies: Headache Psychiatric: Reports: No Symptoms ED EXAM, GENERAL - Physical Exam Exam: See Below Exam Limited By: Altered Mental Status (Pt. chronic hx of dementia) General Appearance: Alert, WD/WN, No Apparent Distress Eye Exam: Bilateral Eye: EOMI, Normal Inspection, PERRL Ears: Normal External Exam, Normal Canal, Hearing Grossly Normal (with hearing aids), Normal TMs (hearing aids removed for exam. ) Ear Exam: Bilateral Ear: Auricle Normal, Canal Normal, TM normal Nose: Normal Inspection, Normal Mucosa, No Blood Throat/Mouth: Normal Inspection, Normal Lips, Normal Gums, Normal Oropharynx, Normal Voice, No Airway Compromise Head: Other (left frontal scalp erythema/ecchymosis small area). No: Facial Swelling, Facial Tenderness, Sinus Tenderness Neck: Normal Inspection, Supple, Non-Tender, Full Range of Motion. No: Tender Lateral, Tender Midline Respiratory/Chest: No Respiratory Distress, Lungs Clear, Normal Breath Sounds, No Accessory Muscle Use, Chest Non-Tender. No: Respiratory Distress, Decreased Breath Sounds, Crackles, Rales, Rhonchi, Wheezing, Stridor, Pleural Rub, Accessory Muscle Use, Retractions, Splinting, Prolonged Expiration Cardiovascular: Normal Peripheral Pulses, Regular Rate, Rhythm, No Edema, No Gallop, No JVD, No Rub, Systolic Murmur Peripheral Pulses: 2+: Radial (L), Radial (R), Posterior Tibial (L), Posterior Tibial (R), Dorsalis Pedis (L), Dorsalis Pedis (R) GI/Abdominal: Normal Bowel Sounds, Soft, Non-Tender, No Organomegaly, No Distention, No Abnormal Bruit, No Mass, Pelvis Stable (Male) Exam: Deferred Rectal (Males) Exam: Deferred Back Exam: Normal Inspection, Full Range of Motion. No: CVA Tenderness (L), CVA Tenderness (R), Decreased Range of Motion, Muscle Spasm, Paraspinal Tenderness, Vertebral Tenderness Extremities: Normal Inspection, Normal Range of Motion, Non-Tender, No Pedal Edema, Normal Capillary Refill Neurological: Alert, CN II-XII Intact (No unilateral weaknesses. Stroke score 0. GCS 15. ), No Motor/Sensory Deficits, Confused (Hx of dementia. Patient is not able to recall what occurred or if he fell, etc. reports this is normal for this patient. ), Memory Loss Recent Events (Does not recall fall.), Abnormal Gait (assisted by two staff who report patient was unsteady on feet and woulve fallen if not assisted. ), Other (Oriented to person and place. Not time. This is patient baseline per . ) Psychiatric: Normal Affect, Normal Mood Skin Exam: Warm, Dry, Normal Color, No Rash, Ecchymosis (small left frontal scalp: Also OLD left hand. ), Erythema (left frontal scalp), Wound/Incision ( left hand OLD skin tear). No: Mottled, Pallor Lymphatic: No Adenopathy EKG INTERPRETATION EKG Date: 01/18/19 Time: 19:59 Rate (Beats/Min): 83 WI/PQ Interval: Paced Comparison: No Change Course - Vital Signs Last Recorded V/S: Last Vital Signs Temp 99 F 01/18/19 20:00 Pulse 82 01/18/19 20:00 Resp 18 01/18/19 20:00 BP 124/71 01/18/19 20:00 Pulse Ox 97 01/18/19 20:00 - Orders/Labs/Meds Orders: Active Orders 24 hr Category Date Time Status Cervical Spine wo Cont [CT] Routine Exams 01/18/19 Taken Chest 1V Frontal [CR] Routine Exams 01/18/19 Taken Head wo Cont [CT] Routine Exams 01/18/19 Taken UA RFX JERMAINE AND CULT IF INDIC [URIN] Stat Lab 01/18/19 20:16 Ordered EKG 12 Lead [EK] Stat Ther 01/18/19 20:16 Ordered Medication Orders Acetaminophen (Tylenol) 650 mg PO Q4H PRN PRN Reason: Pain (Mild 1-3)/fever Aspirin (Aspirin) 81 mg PO BEDTIME [facility] Atorvastatin Calcium (Lipitor) 10 mg PO DAILY [facility] Carvedilol (Coreg) 3.125 mg PO BID [facility] Digoxin (Lanoxin) 125 mcg PO SUMOWEFR [facility] Diphtheria/Tetanus/Acell Pertussis (Adacel) 0.5 ml IM .ONCE ONE Stop: 01/18/19 22:42 Docusate Sodium (Colace) 100 mg PO BID PRN PRN Reason: Constipation Furosemide (Lasix) 20 mg PO SUMOWEFR [facility] Ibuprofen (Motrin) 600 mg PO Q6H PRN PRN Reason: Pain (mild 1-3) Morphine Sulfate (Morphine) 2 mg IVPUSH Q2H PRN PRN Reason: Pain (severe 7-10) Nitroglycerin (Nitrostat) 0.4 mg SL ASDIRECTED PRN PRN Reason: Chest Pain Non-Formulary Medication (Calcium Carb/D3/Magnesium/Zinc [Albert Mag Zinc + D3]) 1 each PO DAILY [facility] Non-Formulary Medication (Cholecalciferol (Vitamin D3)) 1,000 unit PO BID [facility] Non-Formulary Medication (Fish Oil/[place]-3 Fatty Acids [Fish Oil 1,000 Mg]) 1 gm PO DAILY [facility] Non-Formulary Medication (Glucosamine [Glucosamine Sulfate]) 500 mg PO DAILY [facility] Non-Formulary Medication (Irbesartan [Irbesartan]) 150 mg PO DAILY [facility] Non-Formulary Medication (Magnesium [Magnesium]) 250 mg PO MOWEFR [facility] Non-Formulary Medication (Multivitamin [Multivitamins]) 1 each PO DAILY [facility] Ondansetron HCl (Zofran) 4 mg IV Q6H PRN PRN Reason: Nausea/Vomiting Potassium Chloride (Klor-Con 10) 10 meq PO MOWEFR [facility] Spironolactone (Aldactone) 25 mg PO SUMOWEFR [facility] Tamsulosin HCl (Flomax) 0.4 mg PO DAILY [facility] Warfarin Sodium (C[facility]madin) [facility] Labs: Laboratory Tests 01/18/19 01/18/19 01/18/19 Range/Units 20:16 20:16 20:16 WBC 11.2 H (5.0-10.0) 10^3/uL RBC 4.57 (4.50-6.00) 10^6/uL Hgb 14.2 (14.0-18.0) g/dL Hct 41.6 (40.0-54.0) % MCV 91.0 (82.0-94.0) fL MCH 31.1 (27.0-32.0) pg MCHC 34.1 (33.0-38.0) g/dL RDW Coeff of Emmanuelle 14.9 (11.0-15.0) % Plt Count 128 L (150-400) 10^3/uL Neut % (Auto) 79.3 (35-85) % Lymph % (Auto) 6.2 L (10-55) % Green % (Auto) 13.1 (0-16) % Eos % (Auto) 1.3 (0-5) % Baso % (Auto) 0.1 (0-3) % Neut # (Auto) 8.87 H (1.80-7.00) 10^3/uL Lymph # (Auto) 0.69 L (1.00-4.80) 10^3/uL Green # (Auto) 1.47 H (0.00-0.80) 10^3/uL Eos # (Auto) 0.15 (0.00-0.45) 10^3/uL Baso # (Auto) 0.01 10^3/uL PT (9.7-12.3) SEC INR (0.92-1.18) Sodium 139 (136-145) mEq/L Potassium 5.4 H (3.5-5.0) mEq/L Chloride 103 (98-106) mEq/L Carbon Dioxide 27 (21-32) mmol/L BUN 26 H (7-18) mg/dL Creatinine 1.3 (0.7-1.3) mg/dL Est Cr Clr Drug Dosing 46.54 mL/min Estimated GFR (MDRD) 52 L (>=60) mL/min Glucose 112 H D (75-99) mg/dL Lactic Acid (0.4-2.0) mmol/L Calcium 9.1 (8.4-10.1) mg/dL Magnesium 2.2 (1.8-2.4) mg/dL Total Bilirubin 0.9 (0.0-1.0) mg/dL AST 27 (15-37) U/L ALT 27 (12-78) U/L Alkaline Phosphatase 124 H (46-116) U/L Creatine Kinase 69 (35-232) U/L Troponin I < 0.017 (0.00-0.06) ng/mL NT-Pro-B Natriuret Pep 2163 H (0-1000) pg/mL Total Protein 7.1 (6.4-8.2) g/dL Albumin 3.4 (3.4-5.0) g/dL Amylase 117 H (25-115) U/L Lipase (73-393) U/L Urine Color Yellow (YELLOW) Urine Appearance Clear (CLEAR) Urine pH 7.5 (4.5-8.0) Ur Specific [employer] [place] 1.015 (1.003-1.020) Urine Protein Negative (NEGATIVE) mg/dL Urine Glucose (UA) Negative (NEGATIVE) mg/dL Urine Ketones Negative (NEGATIVE) mg/dL Urine Occult Blood Negative (NEGATIVE) Urine Nitrite Negative (NEGATIVE) Urine Bilirubin Negative (NEGATIVE) Urine Urobilinogen 1.0 (0.2-1.0) EU/dL Ur Leukocyte Esterase Negative (NEGATIVE) 01/18/19 01/18/19 01/18/19 Range/Units 20:18 20:54 20:54 WBC (5.0-10.0) 10^3/uL RBC (4.50-6.00) 10^6/uL Hgb (14.0-18.0) g/dL Hct (40.0-54.0) % MCV (82.0-94.0) fL MCH (27.0-32.0) pg MCHC (33.0-38.0) g/dL RDW Coeff of Emmanuelle (11.0-15.0) % Plt Count (150-400) 10^3/uL Neut % (Auto) (35-85) % Lymph % (Auto) (10-55) % Green % (Auto) (0-16) % Eos % (Auto) (0-5) % Baso % (Auto) (0-3) % Neut # (Auto) (1.80-7.00) 10^3/uL Lymph # (Auto) (1.00-4.80) 10^3/uL Green # (Auto) (0.00-0.80) 10^3/uL Eos # (Auto) (0.00-0.45) 10^3/uL Baso # (Auto) 10^3/uL PT 13.1 H (9.7-12.3) SEC INR 1.29 H (0.92-1.18) Sodium (136-145) mEq/L Potassium (3.5-5.0) mEq/L Chloride (98-106) mEq/L Carbon Dioxide (21-32) mmol/L BUN (7-18) mg/dL Creatinine (0.7-1.3) mg/dL Est Cr Clr Drug Dosing mL/min Estimated GFR (MDRD) (>=60) mL/min Glucose (75-99) mg/dL Lactic Acid 1.5 (0.4-2.0) mmol/L Calcium (8.4-10.1) mg/dL Magnesium (1.8-2.4) mg/dL Total Bilirubin (0.0-1.0) mg/dL AST (15-37) U/L ALT (12-78) U/L Alkaline Phosphatase (46-116) U/L Creatine Kinase (35-232) U/L Troponin I (0.00-0.06) ng/mL NT-Pro-B Natriuret Pep (0-1000) pg/mL Total Protein (6.4-8.2) g/dL Albumin (3.4-5.0) g/dL Amylase (25-115) U/L Lipase 244 (73-393) U/L Urine Color (YELLOW) Urine Appearance (CLEAR) Urine pH (4.5-8.0) Ur Specific [employer] [place] (1.003-1.020) Urine Protein (NEGATIVE) mg/dL Urine Glucose (UA) (NEGATIVE) mg/dL Urine Ketones (NEGATIVE) mg/dL Urine Occult Blood (NEGATIVE) Urine Nitrite (NEGATIVE) Urine Bilirubin (NEGATIVE) Urine Urobilinogen (0.2-1.0) EU/dL Ur Leukocyte Esterase (NEGATIVE) Meds: Medications Generic Name Dose Route Start Last Admin Trade Name Freq PRN Reason Stop Dose Admin Acetaminophen 650 mg 01/18/19 22:38 Tylenol PO Q4H PRN Pain (Mild 1-3)/fever Aspirin 81 mg 01/19/19 20:00 Aspirin PO BEDTIME [facility] Atorvastatin Calcium 10 mg 01/19/19 08:00 Lipitor PO DAILY [facility] Carvedilol 3.125 mg 01/19/19 08:00 Coreg PO BID [facility] Digoxin 125 mcg 01/18/19 22:45 Lanoxin PO SUMOWEFR [facility] Diphtheria/Tetanus/Acell Pertussis 0.5 ml 01/18/19 22:41 Adacel IM 01/18/19 22:42 .ONCE ONE Docusate Sodium 100 mg 01/18/19 22:38 Colace PO BID PRN Constipation Furosemide 20 mg 01/18/19 22:45 Lasix PO SUMOWEFR [facility] Ibuprofen 600 mg 01/18/19 22:38 Motrin PO Q6H PRN Pain (mild 1-3) Morphine Sulfate 2 mg 01/18/19 22:38 Morphine IVPUSH Q2H PRN Pain (severe 7-10) Nitroglycerin 0.4 mg 01/18/19 22:38 Nitrostat SL ASDIRECTED PRN Chest Pain Non-Formulary Medication 1 each 01/19/19 08:00 Calcium Carb/D3/Magnesium/Zinc [Albert Mag Zinc + D3] PO DAILY [facility] Non-Formulary Medication 1,000 unit 01/19/19 08:00 Cholecalciferol (Vitamin D3) PO BID [facility] Non-Formulary Medication 1 gm 01/19/19 08:00 Fish Oil/[place]-3 Fatty Acids [Fish Oil 1,000 Mg] PO DAILY [facility] Non-Formulary Medication 500 mg 01/19/19 08:00 Glucosamine [Glucosamine Sulfate] PO DAILY [facility] Non-Formulary Medication 150 mg 01/19/19 08:00 Irbesartan [Irbesartan] PO DAILY [facility] Non-Formulary Medication 250 mg 01/19/19 22:36 Magnesium [Magnesium] PO MOWEFR [facility] Non-Formulary Medication 1 each 01/19/19 08:00 Multivitamin [Multivitamins] PO DAILY [facility] Ondansetron HCl 4 mg 01/18/19 22:38 Zofran IV Q6H PRN Nausea/Vomiting Potassium Chloride 10 meq 01/19/19 22:36 Klor-Con 10 PO MOWEFR [facility] Spironolactone 25 mg 01/18/19 22:45 Aldactone PO SUMOWEFR [facility] Tamsulosin HCl 0.4 mg 01/19/19 08:00 Flomax PO DAILY [facility] Warfarin Sodium 2.5 mg 01/18/19 22:45 [facility] Radiology Interpretation Free Text/Narrative:: Head CT: NO ACUTE FINDINGS Cervical CT: NO ACUTE FINDINGS CXR: Pacemaker in place, no infiltrates, no pulmonary congestion. CT Results Date: 01/18/19 CT Results Time: 21:40 - Re-Assessments/Exams Free Text/Narrative Re-Assessment/Exam: 01/18/19 21:58 The patient has coughed a few times here, nonproductive during his ER visit. reports that she has not heard him cough at home. Departure - Departure Time of Disposition: 22:39 Disposition: Admitted As Inpatient 67 Condition: Fair Clinical Impression: Generalized weakness, Viral upper respiratory infection CHF (congestive heart failure) Qualifiers: Heart failure type: unspecified Heart failure chronicity: chronic Qualified Code(s): I50.9 - Heart failure, unspecified Chest pain Qualifiers: Chest pain type: unspecified Qualified Code(s): R07.9 - Chest pain, unspecified Dyspnea Qualifiers: Dyspnea type: shortness of breath Qualified Code(s): R06.02 - Shortness of breath; R06.00 - Dyspnea, unspecified; R06.01 - Orthopnea Fall Qualifiers: Encounter type: initial encounter Qualified Code(s): W19.XXXA - Unspecified fall, initial encounter Head injury Qualifiers: Encounter type: initial encounter Qualified Code(s): S09.90XA - Unspecified injury of head, initial encounter - Discharge Information *PRESCRIPTION DRUG MONITORING PROGRAM REVIEWED*: Not Applicable *COPY OF PRESCRIPTION DRUG MONITORING REPORT IN PATIENT DANG: Not Applicable - My Orders Last 24 Hours: My Active Orders 01/18/19 20:16 UA RFX JERMAINE AND CULT IF INDIC [URIN] Stat EKG 12 Lead [EK] Stat - Assessment/Plan Last 24 Hours: My Active Orders 01/18/19 20:16 UA RFX JERMAINE AND CULT IF INDIC [URIN] Stat EKG 12 Lead [EK] Stat Plan: PLEASE SEE RN NOTE FOR PFSH. PLEASE USE ER H&P ADMIT H&P
[2019-01-18 20:39] LABS: CHLORIDE,CL 103 mEq/L (98-106); SODIUM,NA 139 mEq/L (136-145)
[2019-01-18] MEDS ORDERED: Ibuprofen 200 MG Tab PO PRN (22:38)
[2019-01-18] MEDS ORDERED: Nitroglycerin 0.4 MG Tab.SL SL PRN (22:38)
[2019-01-18] MEDS ORDERED: Acetaminophen 325 MG Tab PO PRN (22:38)
[2019-01-18] MEDS ORDERED: Docusate Sodium 100 MG Cap PO PRN (22:38)
[2019-01-18] MEDS ORDERED: Morphine 2 MG/ML Syringe IVPUSH PRN (22:38)
[2019-01-18] MEDS ORDERED: Ondansetron 4 MG/2 ML SDV IV PRN (22:38)
[2019-01-18] MEDS ORDERED: Diphtheria,Pertussis(Acell),Tetanus Vaccine 0.5 ML Syringe IM ONE (22:41)
[2019-01-19] MEDS: atorvaSTATin 10 MG Tab PO SCH (07:54)
[2019-01-19] MEDS: Tamsulosin 0.4 MG Cap.ER PO SCH (07:54)
[2019-01-19] MEDS: Multivitamin Tab PO SCH (07:54)
[2019-01-19] MEDS: Cholecalciferol (Vitamin D3) 25 MCG Tab PO SCH ×2 (07:54→19:57)
[2019-01-19] MEDS ORDERED: Furosemide 20 MG Tab PO SCH (08:00)
[2019-01-19] MEDS ORDERED: Non-Formulary Medication 1 Each (Glucosamine [Glucosamine Sulfate] 500 MG) PO SCH (08:00)
[2019-01-19] MEDS ORDERED: Non-Formulary Medication 1 Each (Calcium Carb/D3/Magnesium/Zinc [Cal Mag Zinc + D3] 1 EACH PO SCH (08:00)
[2019-01-19] MEDS ORDERED: IRBESARTAN 150 MG PO SCH (08:00)
[2019-01-19] MEDS ORDERED: Non-Formulary Medication 1 Each (Fish Oil/Omega-3 Fatty Acids [Fish Oil 1,000 Mg] 1 GM) PO SCH (08:00)
[2019-01-19] MEDS ORDERED: Digoxin 125 MCG Tab PO SCH (08:00)
[2019-01-19 08:02] LABS: CHLORIDE,CL 105 mEq/L (98-106); SODIUM,NA 139 mEq/L (136-145)
[2019-01-19] MEDS: Losartan 25 MG Tab PO SCH (08:29)
[2019-01-19] MEDS: Carvedilol 3.125 MG Tab PO SCH ×2 (08:30→17:31)
[2019-01-19] MEDS ORDERED: Spironolactone 25 MG Tab PO SCH (09:00)
[2019-01-19] MEDS ORDERED: Potassium Chloride 10 MEQ Tab.ER PO SCH (09:00)
[2019-01-19] MEDS: Warfarin 2.5 MG Tab PO SCH (11:25)
[2019-01-19] MEDS ORDERED: Aspirin 81 MG Tab.EC PO SCH (20:00)
--- NOTE | 2019-01-19 20:40 | PCM.PN ---
- General Info Date of Service: 01/19/19 Admission Dx/Problem (Free Text): Weakness Functional Status: Reports: Pain Controlled, Tolerating Diet, Ambulating - Review of Systems General: Reports: Weakness, Fatigue. Denies: Fever HEENT: Denies: Ear Pain, Sinus Congestion, Sore Throat Pulmonary: Denies: Shortness of Breath, Cough Cardiovascular: Denies: Chest Pain, Edema, Lightheadedness Gastrointestinal: Denies: Abdominal Pain, Nausea, Vomiting Genitourinary: Reports: No Symptoms Musculoskeletal: Reports: No Symptoms Skin: Reports: Other (abrasion to forehead) Neurological: Reports: Weakness - Patient Data Vitals - Most Recent: Last Vital Signs Temp 99 F 01/19/19 16:00 Pulse 66 01/19/19 17:31 Resp 18 01/19/19 16:00 BP 119/51 L 01/19/19 17:31 Pulse Ox 98 01/19/19 16:00 Weight - Most Recent: 192 lb 6.4 oz Lab Results Last 24 Hours: Laboratory Results - last 24 hr 01/18/19 01/18/19 01/18/19 Range/Units 20:16 20:16 20:16 WBC 11.2 H (5.0-10.0) 10^3/uL RBC 4.57 (4.50-6.00) 10^6/uL Hgb 14.2 (14.0-18.0) g/dL Hct 41.6 (40.0-54.0) % MCV 91.0 (82.0-94.0) fL MCH 31.1 (27.0-32.0) pg MCHC 34.1 (33.0-38.0) g/dL RDW Coeff of Emmanuelle 14.9 (11.0-15.0) % Plt Count 128 L (150-400) 10^3/uL Neut % (Auto) 79.3 (35-85) % Lymph % (Auto) 6.2 L (10-55) % [place] % (Auto) 13.1 (0-16) % Eos % (Auto) 1.3 (0-5) % Baso % (Auto) 0.1 (0-3) % Neut # (Auto) 8.87 H (1.80-7.00) 10^3/uL Lymph # (Auto) 0.69 L (1.00-4.80) 10^3/uL [place] # (Auto) 1.47 H (0.00-0.80) 10^3/uL Eos # (Auto) 0.15 (0.00-0.45) 10^3/uL Baso # (Auto) 0.01 10^3/uL PT (9.7-12.3) SEC INR (0.92-1.18) Sodium 139 (136-145) mEq/L Potassium 5.4 H (3.5-5.0) mEq/L Chloride 103 (98-106) mEq/L Carbon Dioxide 27 (21-32) mmol/L BUN 26 H (7-18) mg/dL Creatinine 1.3 (0.7-1.3) mg/dL Est Cr Clr Drug Dosing 46.54 mL/min Estimated GFR (MDRD) 52 L (>=60) mL/min Glucose 112 H D (75-99) mg/dL Lactic Acid (0.4-2.0) mmol/L Calcium 9.1 (8.4-10.1) mg/dL Magnesium 2.2 (1.8-2.4) mg/dL Total Bilirubin 0.9 (0.0-1.0) mg/dL AST 27 (15-37) U/L ALT 27 (12-78) U/L Alkaline Phosphatase 124 H (46-116) U/L Creatine Kinase 69 (35-232) U/L Troponin I < 0.017 (0.00-0.06) ng/mL NT-Pro-B Natriuret Pep 2163 H (0-1000) pg/mL Total Protein 7.1 (6.4-8.2) g/dL Albumin 3.4 (3.4-5.0) g/dL Amylase 117 H (25-115) U/L Lipase (73-393) U/L Urine Color Yellow (YELLOW) Urine Appearance Clear (CLEAR) Urine pH 7.5 (4.5-8.0) Ur Specific [place] 1.015 (1.003-1.020) Urine Protein Negative (NEGATIVE) mg/dL Urine Glucose (UA) Negative (NEGATIVE) mg/dL Urine Ketones Negative (NEGATIVE) mg/dL Urine Occult Blood Negative (NEGATIVE) Urine Nitrite Negative (NEGATIVE) Urine Bilirubin Negative (NEGATIVE) Urine Urobilinogen 1.0 (0.2-1.0) EU/dL Ur Leukocyte Esterase Negative (NEGATIVE) 01/18/19 01/18/19 01/18/19 Range/Units 20:18 20:54 20:54 WBC (5.0-10.0) 10^3/uL RBC (4.50-6.00) 10^6/uL Hgb (14.0-18.0) g/dL Hct (40.0-54.0) % MCV (82.0-94.0) fL MCH (27.0-32.0) pg MCHC (33.0-38.0) g/dL RDW Coeff of Emmanuelle (11.0-15.0) % Plt Count (150-400) 10^3/uL Neut % (Auto) (35-85) % Lymph % (Auto) (10-55) % [place] % (Auto) (0-16) % Eos % (Auto) (0-5) % Baso % (Auto) (0-3) % Neut # (Auto) (1.80-7.00) 10^3/uL Lymph # (Auto) (1.00-4.80) 10^3/uL [place] # (Auto) (0.00-0.80) 10^3/uL Eos # (Auto) (0.00-0.45) 10^3/uL Baso # (Auto) 10^3/uL PT 13.1 H (9.7-12.3) SEC INR 1.29 H (0.92-1.18) Sodium (136-145) mEq/L Potassium (3.5-5.0) mEq/L Chloride (98-106) mEq/L Carbon Dioxide (21-32) mmol/L BUN (7-18) mg/dL Creatinine (0.7-1.3) mg/dL Est Cr Clr Drug Dosing mL/min Estimated GFR (MDRD) (>=60) mL/min Glucose (75-99) mg/dL Lactic Acid 1.5 (0.4-2.0) mmol/L Calcium (8.4-10.1) mg/dL Magnesium (1.8-2.4) mg/dL Total Bilirubin (0.0-1.0) mg/dL AST (15-37) U/L ALT (12-78) U/L Alkaline Phosphatase (46-116) U/L Creatine Kinase (35-232) U/L Troponin I (0.00-0.06) ng/mL NT-Pro-B Natriuret Pep (0-1000) pg/mL Total Protein (6.4-8.2) g/dL Albumin (3.4-5.0) g/dL Amylase (25-115) U/L Lipase 244 (73-393) U/L Urine Color (YELLOW) Urine Appearance (CLEAR) Urine pH (4.5-8.0) Ur Specific [place] (1.003-1.020) Urine Protein (NEGATIVE) mg/dL Urine Glucose (UA) (NEGATIVE) mg/dL Urine Ketones (NEGATIVE) mg/dL Urine Occult Blood (NEGATIVE) Urine Nitrite (NEGATIVE) Urine Bilirubin (NEGATIVE) Urine Urobilinogen (0.2-1.0) EU/dL Ur Leukocyte Esterase (NEGATIVE) 01/19/19 01/19/19 01/19/19 Range/Units 01:58 07:20 07:20 WBC 10.9 H (5.0-10.0) 10^3/uL RBC 4.08 L (4.50-6.00) 10^6/uL Hgb 12.7 L (14.0-18.0) g/dL Hct 37.4 L (40.0-54.0) % MCV 91.7 (82.0-94.0) fL MCH 31.1 (27.0-32.0) pg MCHC 34.0 (33.0-38.0) g/dL RDW Coeff of Emmanuelle 14.9 (11.0-15.0) % Plt Count 113 L (150-400) 10^3/uL Neut % (Auto) 72.0 (35-85) % Lymph % (Auto) 11.6 (10-55) % [place] % (Auto) 15.8 (0-16) % Eos % (Auto) 0.5 (0-5) % Baso % (Auto) 0.1 (0-3) % Neut # (Auto) 7.86 H (1.80-7.00) 10^3/uL Lymph # (Auto) 1.27 (1.00-4.80) 10^3/uL [place] # (Auto) 1.72 H (0.00-0.80) 10^3/uL Eos # (Auto) 0.05 (0.00-0.45) 10^3/uL Baso # (Auto) 0.01 10^3/uL PT 12.5 H (9.7-12.3) SEC INR 1.23 H (0.92-1.18) Sodium (136-145) mEq/L Potassium (3.5-5.0) mEq/L Chloride (98-106) mEq/L Carbon Dioxide (21-32) mmol/L BUN (7-18) mg/dL Creatinine (0.7-1.3) mg/dL Est Cr Clr Drug Dosing mL/min Estimated GFR (MDRD) (>=60) mL/min Glucose (75-99) mg/dL Lactic Acid (0.4-2.0) mmol/L Calcium (8.4-10.1) mg/dL Magnesium (1.8-2.4) mg/dL Total Bilirubin (0.0-1.0) mg/dL AST (15-37) U/L ALT (12-78) U/L Alkaline Phosphatase (46-116) U/L Creatine Kinase (35-232) U/L Troponin I < 0.017 (0.00-0.06) ng/mL NT-Pro-B Natriuret Pep (0-1000) pg/mL Total Protein (6.4-8.2) g/dL Albumin (3.4-5.0) g/dL Amylase (25-115) U/L Lipase (73-393) U/L Urine Color (YELLOW) Urine Appearance (CLEAR) Urine pH (4.5-8.0) Ur Specific [place] (1.003-1.020) Urine Protein (NEGATIVE) mg/dL Urine Glucose (UA) (NEGATIVE) mg/dL Urine Ketones (NEGATIVE) mg/dL Urine Occult Blood (NEGATIVE) Urine Nitrite (NEGATIVE) Urine Bilirubin (NEGATIVE) Urine Urobilinogen (0.2-1.0) EU/dL Ur Leukocyte Esterase (NEGATIVE) 01/19/19 Range/Units 07:20 WBC (5.0-10.0) 10^3/uL RBC (4.50-6.00) 10^6/uL Hgb (14.0-18.0) g/dL Hct (40.0-54.0) % MCV (82.0-94.0) fL MCH (27.0-32.0) pg MCHC (33.0-38.0) g/dL RDW Coeff of Emmanuelle (11.0-15.0) % Plt Count (150-400) 10^3/uL Neut % (Auto) (35-85) % Lymph % (Auto) (10-55) % [place] % (Auto) (0-16) % Eos % (Auto) (0-5) % Baso % (Auto) (0-3) % Neut # (Auto) (1.80-7.00) 10^3/uL Lymph # (Auto) (1.00-4.80) 10^3/uL [place] # (Auto) (0.00-0.80) 10^3/uL Eos # (Auto) (0.00-0.45) 10^3/uL Baso # (Auto) 10^3/uL PT (9.7-12.3) SEC INR (0.92-1.18) Sodium 139 (136-145) mEq/L Potassium 3.8 D (3.5-5.0) mEq/L Chloride 105 (98-106) mEq/L Carbon Dioxide 25 (21-32) mmol/L BUN 25 H (7-18) mg/dL Creatinine 1.1 (0.7-1.3) mg/dL Est Cr Clr Drug Dosing 55.01 mL/min Estimated GFR (MDRD) > 60 (>=60) mL/min Glucose 85 (75-99) mg/dL Lactic Acid (0.4-2.0) mmol/L Calcium 8.8 (8.4-10.1) mg/dL Magnesium (1.8-2.4) mg/dL Total Bilirubin (0.0-1.0) mg/dL AST (15-37) U/L ALT (12-78) U/L Alkaline Phosphatase (46-116) U/L Creatine Kinase (35-232) U/L Troponin I < 0.017 (0.00-0.06) ng/mL NT-Pro-B Natriuret Pep (0-1000) pg/mL Total Protein (6.4-8.2) g/dL Albumin (3.4-5.0) g/dL Amylase (25-115) U/L Lipase (73-393) U/L Urine Color (YELLOW) Urine Appearance (CLEAR) Urine pH (4.5-8.0) Ur Specific [place] (1.003-1.020) Urine Protein (NEGATIVE) mg/dL Urine Glucose (UA) (NEGATIVE) mg/dL Urine Ketones (NEGATIVE) mg/dL Urine Occult Blood (NEGATIVE) Urine Nitrite (NEGATIVE) Urine Bilirubin (NEGATIVE) Urine Urobilinogen (0.2-1.0) EU/dL Ur Leukocyte Esterase (NEGATIVE) Med Orders - Current: Current Medications Acetaminophen (Tylenol) 650 mg PO Q4H PRN PRN Reason: Pain (Mild 1-3)/fever Aspirin (Halfprin) 81 mg PO BEDTIME [facility] Last Admin: 01/19/19 19:57 Dose: 81 mg Atorvastatin Calcium (Lipitor) 10 mg PO DAILY [facility] Last Admin: 01/19/19 07:54 Dose: 10 mg Carvedilol (Coreg) 3.125 mg PO BIDMEALS [facility] Last Admin: 01/19/19 17:31 Dose: 3.125 mg Cholecalciferol (Vitamin D3) 25 mcg PO BID [facility] Last Admin: 01/19/19 19:57 Dose: 25 mcg Digoxin (Lanoxin) 125 mcg PO SuMoWeFr@0800 [facility] Last Admin: 01/19/19 07:54 Dose: 125 mcg Docusate Sodium (Colace) 100 mg PO BID PRN PRN Reason: Constipation Furosemide (Lasix) 20 mg PO SuMoWeFr@0800 [facility] Last Admin: 01/19/19 07:54 Dose: 20 mg Ibuprofen (Motrin) 600 mg PO Q6H PRN PRN Reason: Pain (mild 1-3) Losartan Potassium (Cozaar) 50 mg PO DAILY [facility] Last Admin: 01/19/19 08:29 Dose: Not Given Magnesium Oxide (Magnesium Oxide) 250 mg PO MoWeFr@0800 [facility] Last Admin: 01/19/19 07:54 Dose: 250 mg Morphine Sulfate (Morphine) 2 mg IVPUSH Q2H PRN PRN Reason: Pain (severe 7-10) Multivitamins/Minerals/Vitamin C (Tab-A-Seun) 1 tab PO DAILY [facility] Last Admin: 01/19/19 07:54 Dose: 1 tab Nitroglycerin (Nitrostat) 0.4 mg SL ASDIRECTED PRN PRN Reason: Chest Pain Non-Formulary Medication (Calcium Carb/D3/Magnesium/Zinc [Albert Mag Zinc + D3]) 1 each PO DAILY [facility] Non-Formulary Medication (Fish Oil/[place]-3 Fatty Acids [Fish Oil 1,000 Mg]) 1 gm PO DAILY [facility] Non-Formulary Medication (Glucosamine [Glucosamine Sulfate]) 500 mg PO DAILY [facility] Ondansetron HCl (Zofran) 4 mg IV Q6H PRN PRN Reason: Nausea/Vomiting Potassium Chloride (Klor-Con 10) 10 meq [facility] Last Admin: 01/19/19 09:09 Dose: 10 meq Spironolactone (Ald[facility]one) [facility] Last Admin: 01/19/19 09:09 Dose: 25 mg Tamsulosin HCl (Flomax) 0.4 mg PO DAILY [facility] Last Admin: 01/19/19 07:54 Dose: 0.4 mg Warfarin Sodium (Coumadin) 2.[address] [facility] Last Admin: 01/19/19 11:25 Dose: 2.5 mg Discontinued Medications Diphtheria/Tetanus/Acell Pertussis (Adacel) 0.5 ml IM .ONCE ONE Stop: 01/18/19 22:42 Last Admin: 01/19/19 03:34 Dose: 0.5 ml - Exam General: Alert, Oriented, No Acute Distress HEENT: Mucous Membr. Moist/[place] Neck: Supple Lungs: Clear to Auscultation, Normal Respiratory Effort Cardiovascular: Irregular Rhythm GI/Abdominal Exam: Normal Bowel Sounds, Soft, Non-Tender Extremities: Normal Inspection, No Pedal Edema Skin: Dry, Other (abrasion to forehead) Neurological: No New Focal Deficit - Problem List & Annotations (1) Fall SNOMED Code(s): 4733276, 936953245 Code(s): W19.XXXA - UNSPECIFIED FALL, INITIAL ENCOUNTER Status: Acute Priority: High Current Visit: Yes Qualifiers: Encounter type: initial encounter Qualified Code(s): W19.XXXA - Unspecified fall, initial encounter (2) Generalized weakness SNOMED Code(s): 87295895 Code(s): R53.1 - WEAKNESS Status: Acute Priority: High Current Visit: Yes - Problem List Review Problem List Initiated/Reviewed/Updated: Yes - Assessment Assessment:: Weakness Fall - Plan Plan:: Patient is feeling good this am. Denies any pain. States had been at the [employer] yesterday, was feeling tired. Had walked out to the [employer] and legs felt weak walking back. States legs gave out and he fell and was unable to get up. He denied being dizzy. Had felt chest discomfort and shortness of breath "from working hard to get up". Family did assist him up and then presented here. Has no pain in chest or joints today. No shortness of breath. Is up and ambulating to bathroom with cane and doing well today. Has abrasion to forehead but denies any pain with this. Blood pressure was low this am, BP meds held. Labs normal this am, WBC 10.9, hemoglobin 12.7. Trops x3 were negative. Potassium normal today now at 3.8, down from 5.4. Will continue with PT today. Monitor blood pressure. Possible discharge in am.
[2019-01-20 07:24] LABS: CHLORIDE,CL 106 mEq/L (98-106); SODIUM,NA 140 mEq/L (136-145)
[2019-01-20] MEDS: Carvedilol 3.125 MG Tab PO SCH (08:08)
[2019-01-20] MEDS: Losartan 25 MG Tab PO SCH (08:09)
[2019-01-20] MEDS: atorvaSTATin 10 MG Tab PO SCH (08:09)
[2019-01-20] MEDS: Multivitamin Tab PO SCH (08:09)
[2019-01-20] MEDS: Cholecalciferol (Vitamin D3) 25 MCG Tab PO SCH (08:10)
[2019-01-20] MEDS: Tamsulosin 0.4 MG Cap.ER PO SCH (08:10)
--- NOTE | 2019-01-20 10:29 | PCM.DCSUM1 ---
Discharge Summary - Hospital Course Free Text/Narrative:: Patient is an 88 year old male who presented to ER with weakness after a fall. Trauma code was called due to fall and on anticoagulation. Patient had complained of being tired so advised him to go for a walk. Had been at [employer] during the day as well. He had been gone for nearly 2 hours and hadn't returned. He was found lying on the ground about 100 yards from the house. He was uncertain at that time if he had fallen or not and is poor historian. He complained of chest pain and shortness of breath, required 2 people to get him up off the ground. Patient on presentation to ER was pain free. Had been coughing, no fevers. Still weak. Unable to walk unassisted in ER. CT scan of head was done and was clear. UA clear. WBC 11.2, hemoglobin 14.2, potassium 5.4, sodium 139, troponin negative. ProBNP 2163. Admitted for neurological/cardiac monitoring. Diagnosis: Stroke: No Modified Woodward Scale: No Symptoms at All Modified Gregory Scale Score: 0 - Discharge Data Discharge Date: 01/20/19 Discharge Disposition: Home, Self-Care 01 Condition: Fair - Referral to Home Health Primary Care Physician: Efrain Abraham PA-C - Discharge Diagnosis/Problem(s) (1) Fall SNOMED Code(s): 5220988, 357506003 ICD Code: W19.XXXA - UNSPECIFIED FALL, INITIAL ENCOUNTER Status: Acute Priority: High Current Visit: Yes Qualifiers: Encounter type: initial encounter Qualified Code(s): W19.XXXA - Unspecified fall, initial encounter (2) Generalized weakness SNOMED Code(s): 96375649 ICD Code: R53.1 - WEAKNESS Status: Acute Priority: High Current Visit: Yes - Patient Summary/Data Complications: none Consults: Consultations 01/18/19 22:38 OT Evaluation and Treatment [CONS] Routine PT Evaluation and Treatment [CONS] Routine Hospital Course: Patient is doing well. Is up and ambulating without difficulty with cane. States left arm is sore but otherwise denies any pain. No chest discomfort or shortness of breath. Has abrasion to left forehead, no redness noted. Appetite is good. Labs have remained stable. Troponins all negative. WBC 8.4 today. Hemoglobin 12.6. Potassium has normalized, today 3.9. Sodium 140. INR still low. Patient relates now that does remember legs getting weak and going to the ground, unable to get himself up due to weakness. Discharge home with . Will have patient take Coumadin daily. Recheck INR at follow up visit with Keith Abraham. - Patient Instructions Diet: Usual Diet as Tolerated Activity: As Tolerated - Discharge Plan *PRESCRIPTION DRUG MONITORING PROGRAM REVIEWED*: Not Applicable *COPY OF PRESCRIPTION DRUG MONITORING REPORT IN PATIENT DANG: Not Applicable Home Medications: Home Meds Aspirin 81 mg PO BEDTIME 05/22/15 [History] Calcium Carb/D3/Magnesium/Zinc [Albert Mag Zinc + D3] 1 each PO DAILY 05/22/15 [ History] Fish Oil/[place]-3 Fatty Acids [Fish Oil 1,000 MG] 1 gm PO DAILY 05/22/15 [History ] Multivitamin [Multivitamins] 1 each PO DAILY 05/22/15 [History] Potassium Chloride [Klor-Con 10] 10 meq PO MOWEFR 05/22/15 [History] atorvaSTATin [Lipitor] 10 mg PO DAILY 06/08/15 [History] Glucosamine [Glucosamine Sulfate] 500 mg PO DAILY 04/21/16 [History] Nitroglycerin 0.4 mg SL ASDIRECTED PRN 04/21/16 [History] Carvedilol [Coreg] 3.125 mg PO BID 05/01/16 [History] Cholecalciferol (Vitamin D3) [Vitamin D] 1,000 unit PO BID 05/01/16 [History] Furosemide [Lasix] 20 mg PO SUMOWEFR 05/01/16 [History] Magnesium 250 mg PO MOWEFR 05/01/16 [History] Warfarin [Coumadin] 2.5 mg PO SUMOTUTHFRSA 05/01/16 [History] Digoxin 0.125 mg PO SUMOWEFR 03/02/17 [History] Spironolactone [Aldactone] 25 mg PO SUMOWEFR 08/26/18 [History] Irbesartan 150 mg PO DAILY 01/18/19 [History] Tamsulosin HCl [Flomax] 0.4 mg PO DAILY 01/18/19 [History] Forms: ED Department Discharge Referrals: Efrain Abraham PA-C [Primary Care Provider] - (Follow up with Keith Abraham in one week) - Discharge Summary/Plan Comment DC Time >30 min.: No - General Info Date of Service: 01/20/19 Admission Dx/Problem (Free Text: Weakness Functional Status: Reports: Pain Controlled, Tolerating Diet, Ambulating, Urinating - Review of Systems General: Reports: Weakness. Denies: Fatigue, Malaise HEENT: Reports: No Symptoms Pulmonary: Denies: Shortness of Breath, Cough Cardiovascular: Denies: Chest Pain, Edema, Lightheadedness Gastrointestinal: Denies: Abdominal Pain, Nausea, Vomiting Genitourinary: Reports: No Symptoms Musculoskeletal: Reports: Arm Pain. Denies: Back Pain, Leg Pain Skin: Reports: Other (abrasion to forehead) Neurological: Reports: Weakness - Patient Data Vitals - Most Recent: Last Vital Signs Temp 98.4 F 01/20/19 08:00 Pulse 71 01/20/19 08:08 Resp 14 01/20/19 08:00 BP 107/63 01/20/19 08:09 Pulse Ox 97 01/20/19 08:00 Weight - Most Recent: 193 lb 3.2 oz Lab Results - Last 24 hrs: Laboratory Results - last 24 hr 01/20/19 01/20/19 01/20/19 Range/Units 07:00 07:00 07:00 WBC 8.4 (5.0-10.0) 10^3/uL RBC 4.04 L (4.50-6.00) 10^6/uL Hgb 12.6 L (14.0-18.0) g/dL Hct 37.2 L (40.0-54.0) % MCV 92.1 (82.0-94.0) fL MCH 31.2 (27.0-32.0) pg MCHC 33.9 (33.0-38.0) g/dL RDW Coeff of Emmanuelle 14.9 (11.0-15.0) % Plt Count 111 L (150-400) 10^3/uL Neut % (Auto) 68.1 (35-85) % Lymph % (Auto) 15.3 (10-55) % [place] % (Auto) 14.5 (0-16) % Eos % (Auto) 2.0 (0-5) % Baso % (Auto) 0.1 (0-3) % Neut # (Auto) 5.69 (1.80-7.00) 10^3/uL Lymph # (Auto) 1.28 (1.00-4.80) 10^3/uL [place] # (Auto) 1.21 H (0.00-0.80) 10^3/uL Eos # (Auto) 0.17 (0.00-0.45) 10^3/uL Baso # (Auto) 0.01 10^3/uL PT 13.3 H (9.7-12.3) SEC INR 1.31 H (0.92-1.18) Sodium 140 (136-145) mEq/L Potassium 3.9 (3.5-5.0) mEq/L Chloride 106 (98-106) mEq/L Carbon Dioxide 26 (21-32) mmol/L BUN 25 H (7-18) mg/dL Creatinine 1.1 (0.7-1.3) mg/dL Est Cr Clr Drug Dosing 55.01 mL/min Estimated GFR (MDRD) > 60 (>=60) mL/min Glucose 88 (75-99) mg/dL Calcium 8.9 (8.4-10.1) mg/dL Med Orders - Current: Current Medications Acetaminophen (Tylenol) 650 mg PO Q4H PRN PRN Reason: Pain (Mild 1-3)/fever Aspirin (Halfprin) 81 mg PO BEDTIME [facility] Last Admin: 01/19/19 19:57 Dose: 81 mg Atorvastatin Calcium (Lipitor) 10 mg PO DAILY [facility] Last Admin: 01/20/19 08:09 Dose: 10 mg Carvedilol (Coreg) 3.125 mg PO BIDMEALS [facility] Last Admin: 01/20/19 08:08 Dose: 3.125 mg Cholecalciferol (Vitamin D3) 25 mcg PO BID [facility] Last Admin: 01/20/19 08:10 Dose: 25 mcg Digoxin (Lanoxin) 125 mcg PO SuMoWeFr@0800 [facility] Last Admin: 01/19/19 07:54 Dose: 125 mcg Docusate Sodium (Colace) 100 mg PO BID PRN PRN Reason: Constipation Furosemide (Lasix) 20 mg PO SuMoWeFr@0800 [facility] Last Admin: 01/19/19 07:54 Dose: 20 mg Ibuprofen (Motrin) 600 mg PO Q6H PRN PRN Reason: Pain (mild 1-3) Losartan Potassium (Cozaar) 50 mg PO DAILY [facility] Last Admin: 01/20/19 08:09 Dose: 50 mg Magnesium Oxide (Magnesium Oxide) 250 mg PO MoWeFr@0800 [facility] Last Admin: 01/19/19 07:54 Dose: 250 mg Morphine Sulfate (Morphine) 2 mg IVPUSH Q2H PRN PRN Reason: Pain (severe 7-10) Multivitamins/Minerals/Vitamin C (Tab-A-Seun) 1 tab PO DAILY [facility] Last Admin: 01/20/19 08:09 Dose: 1 tab Nitroglycerin (Nitrostat) 0.4 mg SL ASDIRECTED PRN PRN Reason: Chest Pain Non-Formulary Medication (Calcium Carb/D3/Magnesium/Zinc [Albert Mag Zinc + D3]) 1 each PO DAILY [facility] Non-Formulary Medication (Fish Oil/[place]-3 Fatty Acids [Fish Oil 1,000 Mg]) 1 gm PO DAILY [facility] Non-Formulary Medication (Glucosamine [Glucosamine Sulfate]) 500 mg PO DAILY [facility] Ondansetron HCl (Zofran) 4 mg IV Q6H PRN PRN Reason: Nausea/Vomiting Potassium Chloride (Klor-Con 10) 10 meq PO MOWEFR [facility] Last Admin: 01/19/19 09:09 Dose: 10 meq Spironolactone (Aldactone) 25 mg PO [facility] Last Admin: 01/19/19 09:09 Dose: 25 mg Tamsulosin HCl (Flomax) 0.4 mg PO DAILY [facility] Last Admin: 01/20/19 08:10 Dose: 0.4 mg Warfarin Sodium (Coumadin) 2.5 mg PO SuMoTuThFrSa@1200 [facility] Last Admin: 01/19/19 11:25 Dose: 2.5 mg Discontinued Medications Diphtheria/Tetanus/Acell Pertussis (Adacel) 0.5 ml IM .ONCE ONE Stop: 01/18/19 22:42 Last Admin: 01/19/19 03:34 Dose: 0.5 ml - Exam General: Reports: Alert, Oriented HEENT: Reports: Mucous Membr. Moist/[place] Neck: Reports: Supple Lungs: Reports: Clear to Auscultation, Normal Respiratory Effort Cardiovascular: Reports: Irregular Rhythm GI/Abdominal Exam: Normal Bowel Sounds, Soft, Non-Tender Extremities: Normal Inspection, No Pedal Edema Skin: Reports: Warm, Dry Wound/Incisions: Reports: Healing Well Neurological: Reports: No New Focal Deficit
[2019-01-20] MEDS: Warfarin 2.5 MG Tab PO SCH (12:12)
[2019-01-20 12:16] VITALS: BP 111/70; PULSE 65
== END 2019-01-20 16:23 | disposition home or self-care (01) | DRG 948 ==
LOC: CC.ED 20:00 → CC.MS 21:48 → UNDOADMIN 21:48 → CC.MS 22:31
PROVIDERS: ADMIT Nurse Practitioner; ATTEND Family Medicine
DX: J06.9 Acute upper respiratory infection, unspecified (principal); R53.1 Weakness; R07.9 Chest pain, unspecified; R06.02 Shortness of breath; S00.03XA Contusion of scalp, initial encounter; S00.81XA Abrasion of other part of head, initial encounter; R41.82 Altered mental status, unspecified; I48.91 Unspecified atrial fibrillation; I10 Essential (primary) hypertension; F03.90 Unspecified dementia, unspecified severity, without behavioral disturbance, psychotic disturbance, mood disturbance, and anxiety; E78.00 Pure hypercholesterolemia, unspecified; G47.30 Sleep apnea, unspecified; N40.0 Benign prostatic hyperplasia without lower urinary tract symptoms; I11.0 Hypertensive heart disease with heart failure; I50.9 Heart failure, unspecified; Z95.0 Presence of cardiac pacemaker; Z95.5 Presence of coronary angioplasty implant and graft; W19.XXXA Unspecified fall, initial encounter; I25.2 Old myocardial infarction; Z79.82 Long term (current) use of aspirin; Z79.899 Other long term (current) drug therapy; Z79.01 Long term (current) use of anticoagulants; Z86.73 Personal history of transient ischemic attack (TIA), and cerebral infarction without residual deficits; Z98.49 Cataract extraction status, unspecified eye
CPT/HCPCS: 36415; 70450; 71045; 72125; 80048; 80053; 81003; 82150; 82550; 83605; 83690; 83735; 83880; 84484; 85025; 85610; 90471; 90715; 93005; 97161-GP; 99285-25; A9270-GY

== ENCOUNTER 2019-03-05 15:06 | Observation (INO) | payer MEDICARE, BC ==
[2019-03-05] MEDS ORDERED: Bisacodyl 10 MG Supp RECTAL ONE (16:15)
[2019-03-05 17:03] LABS: CHLORIDE,CL 98 mEq/L (98-106); SODIUM,NA 132 mEq/L (136-145)
[2019-03-05] MEDS ORDERED: Ondansetron 4 MG/2 ML SDV IV PRN (18:05)
[2019-03-05] MEDS ORDERED: Sodium Chloride 0.9% 10 ML Syringe FLUSH PRN (18:05)
[2019-03-05] MEDS ORDERED: Acetaminophen 325 MG Tab PO PRN (18:05)
[2019-03-05] MEDS ORDERED: Ondansetron 4 MG Tab.DIS PO PRN (18:05)
[2019-03-05] MEDS: Sodium Chloride 0.9% 1,000 ML IV SCH (18:40)
[2019-03-05] MEDS ORDERED: Barium Sulfate Oral Susp 450 ML Bottle PO ONE (19:45)
[2019-03-05] MEDS ORDERED: Iopamidol 755 Mg/ML 100 ML Bottle IVPUSH ONE (19:45)
[2019-03-05] MEDS: Piperacillin/Tazobactam 3.375 GM in Sodium Chloride 0.9% 50 ML IV SCH (21:34)
[2019-03-06] MEDS: Piperacillin/Tazobactam 3.375 GM in Sodium Chloride 0.9% 50 ML IV SCH ×2 (04:31→09:18)
[2019-03-06] MEDS: Sodium Chloride 0.9% 1,000 ML IV SCH (04:33)
[2019-03-06 07:44] LABS: CHLORIDE,CL 101 mEq/L (98-106); SODIUM,NA 135 mEq/L (136-145)
[2019-03-06] MEDS ORDERED: Magnesium Hydroxide 400 MG/5 ML Susp 30 ML Cup PO ONE (08:00)
[2019-03-06 12:23] VITALS: BP 129/87; PULSE 85
--- NOTE | 2019-03-06 13:06 | PCM.DCSUM1 ---
Discharge Summary - Hospital Course Free Text/Narrative:: Antonio is an 88 year old who presented to clinic with a 2 week history of waxing and waning abdominal pain. Over the 24 hours prior to visit, pain had become constant, more localized to RUQ. He has not eaten well for the last 1-2 days. Is taking fluids well. No fevers. No nausea or vomiting. Notes when he moves or twists has more pain but denies any falls or injuries. Labs done in clinic did show a WC of 19.7, CRP of 23.8. UA clear. Sodium 132, potassium 5.1, alk phs 314, AST 26, ALT 60. F/U of the abdomen does show moderate stools, cholelithiasis. CT scan of abdomen done shows acute cholecystitis. Was given dulcolax suppository earlier. Now admitted for IV fluids, antibiotics. Plan for possible surgical consult. Diagnosis: Stroke: No Modified Gregory Scale: No Symptoms at All Modified Bennett Scale Score: 0 - Discharge Data Discharge Date: 03/06/19 Discharge Disposition: DC/Tfer to Acute Hospital 02 Condition: Fair - Referral to Home Health Primary Care Physician: Efrain Abraham PA-C - Patient Summary/Data Complications: none Hospital Course: Patient admits to feeling somewhat better this am. Did have large BM during night which helped to relieve some of his pain. 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 He has remained NPO. INR this am 3.2. Labs improved. WBC 13.1, CRP 18.4. Sodium 135, potassium 4.2. Lactic acid normal 0.8. Afebrile this am. Has been given IV Zosyn every [address] scan last evening showed acute cholecystitis. Did contact [facility] Dr. Campos for surgical consult. Agreed patient will likely need cholecystectomy. Accepted patient in transfer. BLS arranged. Remain NPO at this time. - Patient Instructions Diet: NPO Activity: As Tolerated - Discharge Plan *PRESCRIPTION DRUG MONITORING PROGRAM REVIEWED*: No *COPY OF PRESCRIPTION DRUG MONITORING REPORT IN PATIENT DANG: No Home Medications: Home Meds Aspirin 81 mg PO BEDTIME 05/22/15 [History] Calcium Carb/D3/Magnesium/Zinc [Albert Mag Zinc + D3] 1 each PO DAILY 05/22/15 [ History] Fish Oil/[place]-3 Fatty Acids [Fish Oil 1,000 MG] 1 gm PO DAILY 05/22/15 [History ] Multivitamin [Multivitamins] 1 each PO DAILY 05/22/15 [History] Potassium Chloride [Klor-Con 10] 10 meq PO MOWEFR 05/22/15 [History] atorvaSTATin [Lipitor] 10 mg PO DAILY 06/08/15 [History] Glucosamine [Glucosamine Sulfate] 500 mg PO DAILY 04/21/16 [History] Nitroglycerin 0.4 mg SL ASDIRECTED PRN 04/21/16 [History] Carvedilol [Coreg] 3.125 mg PO BID 05/01/16 [History] Cholecalciferol (Vitamin D3) [Vitamin D] 1,000 unit PO BID 05/01/16 [History] Furosemide [Lasix] 20 mg PO SUMOWEFR 05/01/16 [History] Magnesium 250 mg PO MOWEFR 05/01/16 [History] Digoxin 0.125 mg PO SUMOWEFR 03/02/17 [History] Spironolactone [Aldactone] 25 mg PO SUMOWEFR 08/26/18 [History] Tamsulosin HCl [Flomax] 0.4 mg PO DAILY 01/18/19 [History] Warfarin [Coumadin] 2.5 mg PO DAILY #30 tab 01/20/19 [Rx] - Discharge Summary/Plan Comment DC Time >30 min.: Yes Discharge Summary/Plan Comment: discharge patient to [facility], Dr. Campos. time for evaluation and consult 20 minutes Time for transfer/orders/documentation 20 minutes - General Info Date of Service: 03/06/19 Admission Dx/Problem (Free Text: Acute Cholecystitis Functional Status: Reports: Pain Controlled. Denies: Tolerating Diet, Ambulating - Review of Systems General: Reports: Weakness, Fatigue, Malaise HEENT: Reports: No Symptoms Pulmonary: Denies: Shortness of Breath, Cough Cardiovascular: Denies: Chest Pain, Edema, Lightheadedness Gastrointestinal: Reports: Abdominal Pain. Denies: Nausea, Vomiting Genitourinary: Reports: No Symptoms Musculoskeletal: Reports: No Symptoms Skin: Reports: No Symptoms Neurological: Reports: No Symptoms - Patient Data Vitals - Most Recent: Last Vital Signs Temp 98.8 F 03/06/19 12:00 Pulse 85 03/06/19 12:00 Resp 16 03/06/19 12:00 BP 129/87 03/06/19 12:00 Pulse Ox 96 03/06/19 12:00 Weight - Most Recent: 189 lb 3.2 oz I&O - Last 24 hours: Intake & Output 03/05/19 03/06/19 03/06/19 22:59 06:59 14:59 Intake Total 988 Balance 988 Lab Results - Last 24 hrs: Laboratory Results - last 24 hr 03/05/19 03/05/19 03/05/19 Range/Units 07:00 15:09 15:09 WBC 19.7 H (5.0-10.0) 10^3/uL RBC 4.19 L (4.50-6.00) 10^6/uL Hgb 13.1 L (14.0-18.0) g/dL Hct 38.6 L (40.0-54.0) % MCV 92.1 (82.0-94.0) fL MCH 31.3 (27.0-32.0) pg MCHC 33.9 (33.0-38.0) g/dL RDW Coeff of Emmanuelle 13.4 (11.0-15.0) % Plt Count 284 (150-400) 10^3/uL Neut % (Auto) (35-85) % Lymph % (Auto) (10-55) % [place] % (Auto) (0-16) % Eos % (Auto) (0-5) % Baso % (Auto) (0-3) % Neut # (Auto) (1.80-7.00) 10^3/uL Lymph # (Auto) (1.00-4.80) 10^3/uL [place] # (Auto) (0.00-0.80) 10^3/uL Eos # (Auto) (0.00-0.45) 10^3/uL Baso # (Auto) 10^3/uL Add Manual Diff Yes Neutrophils % (Manual) 86 H (35-85) % Lymphocytes % (Manual) 8 L (21-55) % Monocytes % (Manual) 6 (2-12) % Absolute Neutrophils 16.94 H (1.80-7.00) 10^3/uL Lymphocytes # (Manual) 1.58 (1.00-4.80) 10^3/uL Monocytes # (Manual) 1.18 H (0.00-0.80) 10^3/uL PT (9.7-12.3) SEC INR (0.92-1.18) Sodium 132 L (136-145) mEq/L Potassium 5.1 H D (3.5-5.0) mEq/L Chloride 98 (98-106) mEq/L Carbon Dioxide 25 (21-32) mmol/L BUN 26 H (7-18) mg/dL Creatinine 1.2 (0.7-1.3) mg/dL Est Cr Clr Drug Dosing TNP Estimated GFR (MDRD) 57 L (>=60) mL/min Glucose 116 H D (75-99) mg/dL Lactic Acid 0.8 (0.4-2.0) mmol/L Calcium 9.1 (8.4-10.1) mg/dL Total Bilirubin 1.5 H (0.0-1.0) mg/dL AST 26 (15-37) U/L ALT 60 (12-78) U/L Alkaline Phosphatase 314 H (46-116) U/L C-Reactive Protein 23.8 H (0.2-0.8) mg/dL Total Protein 7.5 (6.4-8.2) g/dL Albumin 2.5 L (3.4-5.0) g/dL Amylase 58 (25-115) U/L Lipase 165 (73-393) U/L Urine Color (YELLOW) Urine Appearance (CLEAR) Urine pH (4.5-8.0) Ur Specific [place] (1.003-1.020) Urine Protein (NEGATIVE) mg/dL Urine Glucose (UA) (NEGATIVE) mg/dL Urine Ketones (NEGATIVE) mg/dL Urine Occult Blood (NEGATIVE) Urine Nitrite (NEGATIVE) Urine Bilirubin (NEGATIVE) Urine Urobilinogen (0.2-1.0) EU/dL Ur Leukocyte Esterase (NEGATIVE) Urine RBC (0-5) /HPF Urine WBC (0-5) /HPF Ur Epithelial Cells (NOT SEEN) /HPF Hyaline Casts (NOT SEEN) /LPF Urine Mucus (NOT SEEN) /HPF 03/05/19 03/06/19 03/06/19 Range/Units 15:09 07:00 07:00 WBC 13.1 H (5.0-10.0) 10^3/uL RBC 3.86 L (4.50-6.00) 10^6/uL Hgb 11.9 L (14.0-18.0) g/dL Hct 35.3 L (40.0-54.0) % MCV 91.5 (82.0-94.0) fL MCH 30.8 (27.0-32.0) pg MCHC 33.7 (33.0-38.0) g/dL RDW Coeff of Emmanuelle 13.4 (11.0-15.0) % Plt Count 226 (150-400) 10^3/uL Neut % (Auto) 78.5 (35-85) % Lymph % (Auto) 7.5 L (10-55) % [place] % (Auto) 13.1 (0-16) % Eos % (Auto) 0.8 (0-5) % Baso % (Auto) 0.1 (0-3) % Neut # (Auto) 10.29 H (1.80-7.00) 10^3/uL Lymph # (Auto) 0.98 L (1.00-4.80) 10^3/uL [place] # (Auto) 1.71 H (0.00-0.80) 10^3/uL Eos # (Auto) 0.10 (0.00-0.45) 10^3/uL Baso # (Auto) 0.01 10^3/uL Add Manual Diff Neutrophils % (Manual) (35-85) % Lymphocytes % (Manual) (21-55) % Monocytes % (Manual) (2-12) % Absolute Neutrophils (1.80-7.00) 10^3/uL Lymphocytes # (Manual) (1.00-4.80) 10^3/uL Monocytes # (Manual) (0.00-0.80) 10^3/uL PT 30.9 H (9.7-12.3) SEC INR 3.20 H (0.92-1.18) Sodium (136-145) mEq/L Potassium (3.5-5.0) mEq/L Chloride (98-106) mEq/L Carbon Dioxide (21-32) mmol/L BUN (7-18) mg/dL Creatinine (0.7-1.3) mg/dL Est Cr Clr Drug Dosing Estimated GFR (MDRD) (>=60) mL/min Glucose (75-99) mg/dL Lactic Acid (0.4-2.0) mmol/L Calcium (8.4-10.1) mg/dL Total Bilirubin (0.0-1.0) mg/dL AST (15-37) U/L ALT (12-78) U/L Alkaline Phosphatase (46-116) U/L C-Reactive Protein (0.2-0.8) mg/dL Total Protein (6.4-8.2) g/dL Albumin (3.4-5.0) g/dL Amylase (25-115) U/L Lipase (73-393) U/L Urine Color [place] (YELLOW) Urine Appearance Clear (CLEAR) Urine pH 5.5 (4.5-8.0) Ur Specific [place] 1.015 (1.003-1.020) Urine Protein Trace H (NEGATIVE) mg/dL Urine Glucose (UA) Negative (NEGATIVE) mg/dL Urine Ketones Trace H (NEGATIVE) mg/dL Urine Occult Blood Negative (NEGATIVE) Urine Nitrite Negative (NEGATIVE) Urine Bilirubin Small H (NEGATIVE) Urine Urobilinogen 4.0 H (0.2-1.0) EU/dL Ur Leukocyte Esterase Negative (NEGATIVE) Urine RBC 5-10 H (0-5) /HPF Urine WBC 0-5 (0-5) /HPF Ur Epithelial Cells Few H (NOT SEEN) /HPF Hyaline Casts Few H (NOT SEEN) /LPF Urine Mucus Few H (NOT SEEN) /HPF 03/06/19 Range/Units 07:00 WBC (5.0-10.0) 10^3/uL RBC (4.50-6.00) 10^6/uL Hgb (14.0-18.0) g/dL Hct (40.0-54.0) % MCV (82.0-94.0) fL MCH (27.0-32.0) pg MCHC (33.0-38.0) g/dL RDW Coeff of Emmanuelle (11.0-15.0) % Plt Count (150-400) 10^3/uL Neut % (Auto) (35-85) % Lymph % (Auto) (10-55) % [place] % (Auto) (0-16) % Eos % (Auto) (0-5) % Baso % (Auto) (0-3) % Neut # (Auto) (1.80-7.00) 10^3/uL Lymph # (Auto) (1.00-4.80) 10^3/uL [place] # (Auto) (0.00-0.80) 10^3/uL Eos # (Auto) (0.00-0.45) 10^3/uL Baso # (Auto) 10^3/uL Add Manual Diff Neutrophils % (Manual) (35-85) % Lymphocytes % (Manual) (21-55) % Monocytes % (Manual) (2-12) % Absolute Neutrophils (1.80-7.00) 10^3/uL Lymphocytes # (Manual) (1.00-4.80) 10^3/uL Monocytes # (Manual) (0.00-0.80) 10^3/uL PT (9.7-12.3) SEC INR (0.92-1.18) Sodium 135 L (136-145) mEq/L Potassium 4.2 (3.5-5.0) mEq/L Chloride 101 (98-106) mEq/L Carbon Dioxide 24 (21-32) mmol/L BUN 20 H (7-18) mg/dL Creatinine 0.9 (0.7-1.3) mg/dL Est Cr Clr Drug Dosing 63.47 Estimated GFR (MDRD) > 60 (>=60) mL/min Glucose 90 (75-99) mg/dL Lactic Acid (0.4-2.0) mmol/L Calcium 8.6 (8.4-10.1) mg/dL Total Bilirubin (0.0-1.0) mg/dL AST (15-37) U/L ALT (12-78) U/L Alkaline Phosphatase (46-116) U/L C-Reactive Protein 18.4 H (0.2-0.8) mg/dL Total Protein (6.4-8.2) g/dL Albumin (3.4-5.0) g/dL Amylase (25-115) U/L Lipase (73-393) U/L Urine Color (YELLOW) Urine Appearance (CLEAR) Urine pH (4.5-8.0) Ur Specific [place] (1.003-1.020) Urine Protein (NEGATIVE) mg/dL Urine Glucose (UA) (NEGATIVE) mg/dL Urine Ketones (NEGATIVE) mg/dL Urine Occult Blood (NEGATIVE) Urine Nitrite (NEGATIVE) Urine Bilirubin (NEGATIVE) Urine Urobilinogen (0.2-1.0) EU/dL Ur Leukocyte Esterase (NEGATIVE) Urine RBC (0-5) /HPF Urine WBC (0-5) /HPF Ur Epithelial Cells (NOT SEEN) /HPF Hyaline Casts (NOT SEEN) /LPF Urine Mucus (NOT SEEN) /HPF Med Orders - Current: Current Medications Acetaminophen (Tylenol) 650 mg PO Q4H PRN PRN Reason: Pain (Mild 1-3)/fever Sodium Chloride (Normal Saline) 1,000 mls @ 100 mls/hr IV ASDIRECTED [facility] Last Admin: 03/06/19 04:33 Dose: 100 mls/hr Piperacillin Sod/Tazobactam (Sod 3.375 gm/ Sodium Chloride) 50 mls @ 100 mls/ hr IV Q6H [facility] Last Admin: 03/06/19 09:18 Dose: 100 mls/hr Ondansetron HCl (Zofran Odt) 4 mg PO Q4H PRN PRN Reason: nausea, able to take PO Ondansetron HCl (Zofran) 4 mg IV Q4H PRN PRN Reason: Nausea/Vomiting Sodium Chloride (Saline Flush) 10 ml FLUSH ASDIRECTED PRN PRN Reason: Keep Vein Open Discontinued Medications Barium Sulfate (Readi-Cat 2) 900 ml PO ONETIME ONE Stop: 03/05/19 19:46 Last Admin: 03/05/19 20:02 Dose: 900 ml Bisacodyl (Dulcolax) 10 mg RECTAL ONETIME ONE Stop: 03/05/19 16:16 Last Admin: 03/05/19 16:14 Dose: 10 mg Iopamidol (Isovue-370 (76%)) 100 ml IVPUSH ONETIME ONE Stop: 03/05/19 19:46 Last Admin: 03/05/19 20:01 Dose: 100 ml Magnesium Hydroxide (Milk Of Magnesia) 30 ml PO DAILY ONE Stop: 03/06/19 08:01 - Exam General: Reports: Alert, Oriented (person and place; short term memory recall limited) HEENT: Reports: Mucous Membr. Moist/[place] Neck: Reports: Supple Lungs: Reports: Clear to Auscultation, Normal Respiratory Effort Cardiovascular: Reports: Irregular Rhythm GI/Abdominal Exam: Normal Bowel Sounds, Soft, Tender (RUQ) Extremities: Normal Inspection, No Pedal Edema Skin: Reports: Warm, Dry Neurological: Reports: No New Focal Deficit
== END 2019-03-06 13:34 ==
LOC: CC.FCMC 15:06 → CC.ACU 15:06 → UNDOADMOB 17:50 → CC.MS 17:50
PROVIDERS: ADMIT Physician Assistant Medical; ATTEND Family Medicine
DX: K81.0 Acute cholecystitis (principal); I11.0 Hypertensive heart disease with heart failure; I50.9 Heart failure, unspecified; I25.10 Atherosclerotic heart disease of native coronary artery without angina pectoris; E78.5 Hyperlipidemia, unspecified; E55.9 Vitamin D deficiency, unspecified; Z79.82 Long term (current) use of aspirin; Z79.899 Other long term (current) drug therapy; Z79.01 Long term (current) use of anticoagulants
CPT/HCPCS: 36415; 74019; 74177; 80048; 80053; 81001; 82150; 83605; 83690; 85025; 85610; 86140; 96360; 96361; 99217; 99220; A9270-GY; G0378; J2543; J7030; J7050; Q9967

== ENCOUNTER 2020-02-18 09:15 | Emergency (ER) | payer MEDICARE, BC ==
[2020-02-18 09:23] VITALS: BP 99/56; PULSE 60
--- NOTE | 2020-02-18 10:19 | EDM.PDOC ---
ED HPI GENERAL MEDICAL PROBLEM - General Chief Complaint: Skin Complaint Stated Complaint: irritation/rash Time Seen by Provider: 02/18/20 09:38 Source of Information: Reports: Patient History Limitations: Reports: No Limitations - History of Present Illness INITIAL COMMENTS - FREE TEXT/NARRATIVE: pt was brought in to ER by his with pain to the right inguinal area and the right scrotum was swollen. He also had a rash to the right groin area that was beefy red and tender. He states that he has had a hernia for years and usually he can reduce it on his own. He states that this morning he couldn't get it to reduce again. He was having difficulty with sitting due to the pain that it was causing. When he presented to the ER he states that he is no longer having test icle pain but continues to have some pain in his hernia. states that he has seen a surgeon in the past and was told that with his medical history that he is not a surgical candidate. He states that he does not want to have surgery. He doesn't know when the rash started. He states that it bartlett and is very painful. He denies any problems with constipation or difficulty urinating. Onset: Gradual Location: Reports: Pelvis Associated Symptoms: Denies: Loss of Appetite, Nausea/Vomiting - Related Data Allergies Allergy/AdvReac Type Severity Reaction Status Date / Time No Known Allergies Allergy Verified 02/18/20 10:21 Home Meds: Home Meds Aspirin 81 mg PO BEDTIME 05/22/15 [History] Calcium Carb/D3/Magnesium/Zinc [Albert Mag Zinc + D3] 1 each PO DAILY 05/22/15 [History] Fish Oil/[place]-3 Fatty Acids [Fish Oil 1,000 MG] 1 gm PO DAILY 05/22/15 [History] Multivitamin [Multivitamins] 1 each PO DAILY 05/22/15 [History] Potassium Chloride [Klor-Con 10] 10 meq PO MOWEFR 05/22/15 [History] atorvaSTATin [Lipitor] 10 mg PO DAILY 06/08/15 [History] Glucosamine [Glucosamine Sulfate] 500 mg PO DAILY 04/21/16 [History] Nitroglycerin 0.4 mg SL ASDIRECTED PRN 04/21/16 [History] Cholecalciferol (Vitamin D3) [Vitamin D] 1,000 unit PO BID 05/01/16 [History] Furosemide [Lasix] 20 mg PO SUMOWEFR 05/01/16 [History] Magnesium 250 mg PO MOWEFR 05/01/16 [History] carvediloL [Coreg] 3.125 mg PO BID 05/01/16 [History] Digoxin 0.125 mg PO SUMOWEFR 03/02/17 [History] Spironolactone [Aldactone] 25 mg PO SUMOWEFR 08/26/18 [History] Tamsulosin HCl [Flomax] 0.4 mg PO DAILY 01/18/19 [History] Warfarin [Coumadin] 2.5 mg PO DAILY #30 tab 01/20/19 [Rx] Past Medical History HEENT History: Reports: Cataract, Hard of Hearing Cardiovascular History: Reports: Afib, High Cholesterol, Hypertension, VA, Pacemaker, Stents Other Cardiovascular History: VA on 2015. 3 stents Respiratory History: Reports: Sleep Apnea Gastrointestinal History: Reports: None Genitourinary History: Reports: BPH Neurological History: Reports: TIA Psychiatric History: Reports: Dementia - Past Surgical History HEENT Surgical History: Reports: Cataract Surgery, Tonsillectomy Cardiovascular Surgical History: Reports: Other (See Below) Other Cardiovascular Surgeries/Procedures: stents placed Respiratory Surgical History: Reports: None GI Surgical History: Reports: Colonoscopy Male Surgical History: Reports: None Neurological Surgical History: Reports: None Social & Family History - Family History Family Medical History: Noncontributory - Tobacco Use Tobacco Use Status *Q: Never Tobacco User Second Hand Smoke Exposure: No - Caffeine Use Caffeine Use: Reports: Coffee - Recreational Drug Use Recreational Drug Use: No - Living Situation & Occupation Living situation: Reports: , with Spouse Occupation: Retired ED ROS GENERAL - Review of Systems Review Of Systems: See Below Constitutional: Denies: Fever, Chills HEENT: Reports: Hearing Loss Respiratory: Reports: No Symptoms Cardiovascular: Reports: No Symptoms GI/Abdominal: Denies: Constipation, Diarrhea : Reports: Other (right scrotum pain and right inguinal pain and swelling.). Denies: Dysuria Skin: Reports: Rash (to the right groin) ED EXAM, SKIN/RASH Exam: See Below Exam Limited By: No Limitations General Appearance: Alert, WD/WN, Mild Distress Ears: Normal External Exam Nose: Normal Inspection Throat/Mouth: Normal Inspection, Normal Oropharynx Head: Atraumatic, Normocephalic Neck: Normal Inspection, Supple, Non-Tender Respiratory/Chest: No Respiratory Distress, Lungs Clear, Normal Breath Sounds Cardiovascular: Regular Rate, Rhythm, No Edema GI/Abdominal: Normal Bowel Sounds, Soft, Non-Tender (Male) Exam: Hernia (right inguinal hernia noted that extends into the right scrotum. This was able to be reduced with minimal amount of pressure applied. No pain to the right testicle. No swelling to the left inguinal area. NO pain to the left testicle.), Rash (to the right groin that is bright red and very sensitive. No bleeding to the area. No open area noted.). No: Penile Lesions, Testicular Mass Extremities: No Pedal Edema, Normal Capillary Refill Neurological: Alert, Oriented Course - Vital Signs Last Recorded V/S: Last Vital Signs Temp 97.3 F 02/18/20 09:16 Pulse 60 02/18/20 09:16 Resp 20 02/18/20 09:16 BP 99/56 L 02/18/20 09:16 Pulse Ox 100 02/18/20 09:16 - Re-Assessments/Exams Free Text/Narrative Re-Assessment/Exam: 02/18/20 1015 Discussion held with regarding the hernia. She states that he doesn't want to have surgery if he can get by with out it. Discussed consult with surgeon and he wishes to wait and see what happens. Discussed that if the hernia does not reduce or if he has increase in pain then would need to see surgeon at that time. Both voice understanding of this. Departure - Departure Time of Disposition: 10:16 Disposition: Home, Self-Care 01 Condition: Good Clinical Impression: Indirect inguinal hernia, Yeast dermatitis - Discharge Information *PRESCRIPTION DRUG MONITORING PROGRAM REVIEWED*: Not Applicable *COPY OF PRESCRIPTION DRUG MONITORING REPORT IN PATIENT DANG: Not Applicable Instructions: Inguinal Hernia, Adult, [id number] Forms: ED Department Discharge Additional Instructions: If hernia reoccurs then push it back up as tolerated Use nsystatin cream to rash in groin diflucan 150 mg now Sepsis Event Note (ED) - Evaluation Sepsis Screening Result: No Definite Risk - Problem List & Annotations (1) Indirect inguinal hernia SNOMED Code(s): 47911953 Code(s): K40.90 - UNIL INGUINAL HERNIA, W/O OBST OR GANGR, NOT SPCF RECUR Status: Acute Priority: High (2) Yeast dermatitis SNOMED Code(s): 09998559 Code(s): B37.2 - CANDIDIASIS OF SKIN AND NAIL Status: Acute Priority: Medium - Problem List Review Problem List Initiated/Reviewed/Updated: Yes
== END 2020-02-18 10:40 | disposition home or self-care (01) ==
LOC: CC.ED 09:15
DX: K40.90 Unilateral inguinal hernia, without obstruction or gangrene, not specified as recurrent (principal); B37.2 Candidiasis of skin and nail; I48.91 Unspecified atrial fibrillation; E78.00 Pure hypercholesterolemia, unspecified; I10 Essential (primary) hypertension; I25.2 Old myocardial infarction; N40.0 Benign prostatic hyperplasia without lower urinary tract symptoms; F03.90 Unspecified dementia, unspecified severity, without behavioral disturbance, psychotic disturbance, mood disturbance, and anxiety; Z95.5 Presence of coronary angioplasty implant and graft; Z86.73 Personal history of transient ischemic attack (TIA), and cerebral infarction without residual deficits
CPT/HCPCS: 99283

== ENCOUNTER 2021-05-15 10:19 | Inpatient (IN) | payer MEDICARE, BC ==
[2021-05-15 10:53] LABS: CHLORIDE,CL 88 mEq/L (98-106)
[2021-05-15 11:03] LABS: SODIUM,NA 121 mEq/L (136-145)
[2021-05-15] MEDS ORDERED: Sodium Chloride 0.9% 1,000 ML IV SCH (12:00)
[2021-05-15] MEDS ORDERED: Nitroglycerin 0.4 MG Tab.SL SL PRN (14:28)
[2021-05-15] MEDS ORDERED: Furosemide 40 MG Tab **PTOM PO SCH (14:29)
[2021-05-15] MEDS ORDERED: DIGOXIN 125 MCG PO SCH (14:37)
[2021-05-15] MEDS ORDERED: Potassium Chloride 10 MEQ Tab.ER **PTOM PO SCH (17:30)
[2021-05-15] MEDS: Cholecalciferol (Vitamin D3) 25 MCG Tab PO SCH (19:53)
[2021-05-15] MEDS: Melatonin 3 MG Tab PO SCH (19:53)
[2021-05-15] MEDS ORDERED: SPIRONOLACTONE 25 MG PO SCH (20:00)
[2021-05-16] MEDS: ESCITALOPRAM 10 MG PO SCH (07:36)
[2021-05-16] MEDS: Multivitamin Tab PO SCH (07:43)
[2021-05-16] MEDS: Cholecalciferol (Vitamin D3) 25 MCG Tab PO SCH ×2 (07:43→19:45)
[2021-05-16] MEDS: Calcium Carbonate/Magnesium Oxide/Zinc Oxide Tab PO SCH (07:43)
[2021-05-16] MEDS ORDERED: Levofloxacin/Dextrose 5%-Water 750 MG in Premix Bag 1 BAG IV SCH (09:45)
[2021-05-16] MEDS ORDERED: Furosemide 20 MG Tab PO ONE (09:45)
[2021-05-16] MEDS ORDERED: Sodium Polystyrene Sulfonate 15 GM/60 ML Susp 60 ML Bot PO ONE (10:15)
[2021-05-16] MEDS: Carvedilol 3.125 MG Tab PO SCH (17:41)
[2021-05-16] MEDS: Melatonin 3 MG Tab PO SCH (19:45)
[2021-05-17] MEDS: Furosemide 40 MG Tab PO SCH (07:55)
[2021-05-17] MEDS: Multivitamin Tab PO SCH (07:58)
[2021-05-17] MEDS: Carvedilol 3.125 MG Tab PO SCH ×2 (07:59→17:39)
[2021-05-17] MEDS: Cholecalciferol (Vitamin D3) 25 MCG Tab PO SCH ×2 (07:59→19:34)
[2021-05-17] MEDS: Digoxin 125 MCG Tab PO SCH (08:00)
[2021-05-17] MEDS: ESCITALOPRAM 10 MG PO SCH (08:01)
[2021-05-17] MEDS: Calcium Carbonate/Magnesium Oxide/Zinc Oxide Tab PO SCH (08:03)
[2021-05-17] MEDS: Melatonin 3 MG Tab PO SCH (19:34)
[2021-05-17] MEDS ORDERED: Spironolactone 25 MG Tab PO SCH (20:00)
[2021-05-17] MEDS ORDERED: Warfarin 2.5 MG Tab PO SCH (20:00)
[2021-05-18] MEDS: Multivitamin Tab PO SCH (08:11)
[2021-05-18] MEDS: Calcium Carbonate/Magnesium Oxide/Zinc Oxide Tab PO SCH (08:11)
[2021-05-18] MEDS: Cholecalciferol (Vitamin D3) 25 MCG Tab PO SCH ×2 (08:11→19:37)
[2021-05-18] MEDS: Carvedilol 3.125 MG Tab PO SCH ×2 (08:12→17:33)
[2021-05-18] MEDS: ESCITALOPRAM 10 MG PO SCH (08:34)
[2021-05-18] MEDS: Levofloxacin/Dextrose 5%-Water 750 MG in Premix Bag 1 BAG IV SCH (08:40)
[2021-05-18] MEDS: Melatonin 3 MG Tab PO SCH (19:37)
[2021-05-19] MEDS: ESCITALOPRAM 10 MG PO SCH (08:09)
[2021-05-19] MEDS: Cholecalciferol (Vitamin D3) 25 MCG Tab PO SCH (08:10)
[2021-05-19] MEDS: Furosemide 40 MG Tab PO SCH (08:10)
[2021-05-19] MEDS: Digoxin 125 MCG Tab PO SCH (08:10)
[2021-05-19] MEDS: Multivitamin Tab PO SCH (08:10)
[2021-05-19] MEDS: Calcium Carbonate/Magnesium Oxide/Zinc Oxide Tab PO SCH (08:10)
[2021-05-19] MEDS: Carvedilol 3.125 MG Tab PO SCH (08:11)
[2021-05-19] MEDS: Levofloxacin/Dextrose 5%-Water 750 MG in Premix Bag 1 BAG IV SCH (08:11)
[2021-05-19 08:12] VITALS: BP 94/53; PULSE 70
== END 2021-05-19 10:43 | disposition swing bed (61) | DRG 177 ==
LOC: CC.FCMC 10:19 → UNDOADMOB 11:46 → CC.MS 11:46 → OBSVTOIN 05-16 09:02
PROVIDERS: ADMIT Nurse Practitioner Family; ATTEND Family Medicine
DX: E87.1 Hypo-osmolality and hyponatremia (principal); R79.1 Abnormal coagulation profile; W19.XXXA Unspecified fall, initial encounter; K64.4 Residual hemorrhoidal skin tags; H91.90 Unspecified hearing loss, unspecified ear; R29.6 Repeated falls; I48.91 Unspecified atrial fibrillation; U07.1 COVID-19; E78.00 Pure hypercholesterolemia, unspecified; I10 Essential (primary) hypertension; I25.2 Old myocardial infarction; Z95.5 Presence of coronary angioplasty implant and graft; G47.30 Sleep apnea, unspecified; N40.0 Benign prostatic hyperplasia without lower urinary tract symptoms; F03.90 Unspecified dementia, unspecified severity, without behavioral disturbance, psychotic disturbance, mood disturbance, and anxiety; Y92.009 Unspecified place in unspecified non-institutional (private) residence as the place of occurrence of the external cause; Z86.73 Personal history of transient ischemic attack (TIA), and cerebral infarction without residual deficits; Z79.01 Long term (current) use of anticoagulants; Z79.82 Long term (current) use of aspirin; Z95.0 Presence of cardiac pacemaker; Z79.899 Other long term (current) drug therapy; K92.1 Melena; Z90.89 Acquired absence of other organs; E87.5 Hyperkalemia; I50.9 Heart failure, unspecified; J18.9 Pneumonia, unspecified organism; D72.829 Elevated white blood cell count, unspecified
CPT/HCPCS: 36415; 70450; 71045; 80053; 81003; 83735; 85025; 85610; A9270-GY; G0378; G0379; J1956; J7030; U0002

== ENCOUNTER 2021-05-19 10:43 | Inpatient (IN) | payer MEDICARE, BC ==
[2021-05-19] MEDS ORDERED: Nitroglycerin 0.4 MG Tab.SL SL PRN (12:36)
[2021-05-19] MEDS ORDERED: Potassium Chloride 10 MEQ Tab.ER PO SCH (17:30)
[2021-05-19] MEDS: Carvedilol 3.125 MG Tab PO SCH (17:33)
[2021-05-19] MEDS: Cholecalciferol (Vitamin D3) 25 MCG Tab PO SCH (19:54)
[2021-05-19] MEDS: Warfarin 2.5 MG Tab PO SCH (19:54)
[2021-05-19] MEDS: Melatonin 3 MG Tab PO SCH (19:54)
[2021-05-19] MEDS ORDERED: Spironolactone 25 MG Tab PO SCH (20:00)
[2021-05-20] MEDS: ESCITALOPRAM 10 MG PO SCH (09:05)
[2021-05-20] MEDS: Calcium Carbonate/Magnesium Oxide/Zinc Oxide Tab PO SCH (09:06)
[2021-05-20] MEDS: Multivitamin Tab PO SCH (09:06)
[2021-05-20] MEDS: Cholecalciferol (Vitamin D3) 25 MCG Tab PO SCH ×2 (09:06→20:33)
[2021-05-20] MEDS: Carvedilol 3.125 MG Tab PO SCH ×2 (09:07→17:16)
[2021-05-20] MEDS: Levofloxacin/Dextrose 5%-Water 750 MG in Premix Bag 1 BAG IV SCH (09:07)
[2021-05-20] MEDS: Melatonin 3 MG Tab PO SCH (20:33)
[2021-05-21] MEDS: ESCITALOPRAM 10 MG PO SCH (08:33)
[2021-05-21] MEDS: Digoxin 125 MCG Tab PO SCH (08:33)
[2021-05-21] MEDS: Carvedilol 3.125 MG Tab PO SCH ×2 (08:33→17:35)
[2021-05-21] MEDS: Calcium Carbonate/Magnesium Oxide/Zinc Oxide Tab PO SCH (08:34)
[2021-05-21] MEDS: Furosemide 40 MG Tab PO SCH (08:34)
[2021-05-21] MEDS: Cholecalciferol (Vitamin D3) 25 MCG Tab PO SCH ×2 (08:34→19:11)
[2021-05-21] MEDS: Multivitamin Tab PO SCH (08:34)
[2021-05-21] MEDS: Levofloxacin/Dextrose 5%-Water 750 MG in Premix Bag 1 BAG IV SCH (08:35)
[2021-05-21] MEDS: Melatonin 3 MG Tab PO SCH (19:11)
[2021-05-22] MEDS: Carvedilol 3.125 MG Tab PO SCH ×2 (08:14→16:56)
[2021-05-22] MEDS: Furosemide 40 MG Tab PO SCH (08:14)
[2021-05-22] MEDS: Digoxin 125 MCG Tab PO SCH (08:15)
[2021-05-22] MEDS: Cholecalciferol (Vitamin D3) 25 MCG Tab PO SCH ×2 (08:15→19:27)
[2021-05-22] MEDS: Levofloxacin/Dextrose 5%-Water 750 MG in Premix Bag 1 BAG IV SCH (08:15)
[2021-05-22] MEDS: Calcium Carbonate/Magnesium Oxide/Zinc Oxide Tab PO SCH (08:15)
[2021-05-22] MEDS: Multivitamin Tab PO SCH (08:15)
[2021-05-22] MEDS: ESCITALOPRAM 10 MG PO SCH (08:18)
[2021-05-22] MEDS: Warfarin 2.5 MG Tab PO SCH (15:02)
[2021-05-22] MEDS ORDERED: Potassium Chloride 10 MEQ Tab.ER PO SCH (18:23)
[2021-05-22] MEDS: Melatonin 3 MG Tab PO SCH (19:27)
[2021-05-23] MEDS: Levofloxacin/Dextrose 5%-Water 750 MG in Premix Bag 1 BAG IV SCH (08:41)
[2021-05-23] MEDS: Calcium Carbonate/Magnesium Oxide/Zinc Oxide Tab PO SCH (08:42)
[2021-05-23] MEDS: ESCITALOPRAM 10 MG PO SCH (08:42)
[2021-05-23] MEDS: Carvedilol 3.125 MG Tab PO SCH ×2 (08:42→16:36)
[2021-05-23] MEDS: Cholecalciferol (Vitamin D3) 25 MCG Tab PO SCH ×2 (08:42→19:50)
[2021-05-23] MEDS: Multivitamin Tab PO SCH (08:42)
[2021-05-23] MEDS ORDERED: Phytonadione 5 MG Tab PO ONE (10:58)
[2021-05-23] MEDS ORDERED: Atropine 0.4 MG/ML SDV IVPUSH ONE (18:07)
[2021-05-23] MEDS ORDERED: Piperacillin/Tazobactam 4.5 GM in Sodium Chloride 0.9% 100 ML IV ONE (18:15)
[2021-05-23] MEDS ORDERED: Sodium Chloride 0.9% 500 ML IV SCH (18:15)
[2021-05-23] MEDS ORDERED: LORazepam 0.5 MG Tab PO PRN (18:39)
[2021-05-23] MEDS ORDERED: Morphine 2 MG/ML SYRINGE IVPUSH PRN (19:24)
[2021-05-23] MEDS ORDERED: LORazepam 2 MG/ML Syringe IVPUSH PRN (19:26)
[2021-05-23] MEDS ORDERED: LORazepam 2 MG/ML Syringe IVPUSH SCH (19:30)
[2021-05-23 19:43] VITALS: BP 113/69; PULSE 81
[2021-05-23] MEDS: Melatonin 3 MG Tab PO SCH (19:50)
[2021-05-23] MEDS ORDERED: LORazepam 2 MG/ML Syringe ONE (19:54)
[2021-05-23] MEDS ORDERED: Morphine 2 MG/ML SYRINGE ONE (19:55)
[2021-05-24] MEDS ORDERED: Piperacillin/Tazobactam 3.375 GM in Sodium Chloride 0.9% 100 ML IV SCH (02:00)
== END 2021-05-24 02:05 | disposition expired | DRG 177 ==
LOC: UNDOADMIN 10:43 → CC.MS 10:43
PROVIDERS: ADMIT Nurse Practitioner Family; ATTEND Family Medicine
DX: U07.1 COVID-19 (principal); J18.9 Pneumonia, unspecified organism; E87.1 Hypo-osmolality and hyponatremia; R53.1 Weakness; Z66 Do not resuscitate; E87.5 Hyperkalemia; R94.4 Abnormal results of kidney function studies; Z79.82 Long term (current) use of aspirin; Z79.899 Other long term (current) drug therapy; Z79.01 Long term (current) use of anticoagulants
CPT/HCPCS: 36415; 71045; 80048; 80053; 85025; 85610; 97110-GP; 97161-GP; A9270-GY; J0461; J1956; J2060; J2270; J2543; J7030